=== PATIENT | female | born 1965 | race Caucasian/White ===

== ENCOUNTER → 2021-12-17 | Outpatient (CLI) | payer BC ==
[2021-12-17 11:59] VITALS: BP 160/78; PULSE 87; RESP 18; TEMP 97.9
--- NOTE | 2021-12-17 12:24 | P.GSHP ---
History of Present Illness H&P Date: 12/17/21 Chief Complaint: invasive ductal cancer left breast stage IA Justa is a 56 year old white female seen in consultation for Azul Velázquez regarding a biopsy proven invasive ductal cancer in the left breast. She had a routine screening mammogram performed on 8322. This revealed a lesion in the left breast [place] [address]. Diagnostic left breast mammogram was then performed on 920 822. Biopsy was recommended. Biopsy was performed on 12-07-21. This was for a 1.8 x 1.4 cm lesion in the 4:00 region of the left breast. She has not had any prior breast biopsies or surgery. She has not had any recent trauma or infection in her breast. She did develop ecchymosis following the biopsy and still has some residual. Caffiene: 2 cups/day nicotine: 1 to 1/2 PPD for 45 years chocolate: occasional BCP: < 2 years in her 20's hormones: none Family History: mother: breast cancer 3 maternal aunts: breast cancer maternal aunt: colon cancer father: lung cancer sister: brain cancer Hormonal History: menarche: 12 , breast fed: yes, age at first : 23 menopause: 41; stopped the periods with something they inserted not hormones hormones: none Surgical History: as above Medical History: headaches vertigo Social History: nicotine: 1 to 1/2 PPD alcohol: 2/night drugs: none - Constitutional Constitutional: Reports sweats - EENT Eyes: denies blurred vision, denies pain Ears: deny: decreased hearing, tinnitus Ears, nose, mouth and throat: Reports headache - Breasts Breasts: bilateral: as per HPI - Cardiovascular Cardiovascular: Denies chest pain, Denies shortness of breath - Respiratory Comment: smoker - Gastrointestinal Gastrointestinal: Denies abdominal pain, Denies diarrhea, Denies nausea, Denies vomiting - Genitourinary (Female) Genitourinary: Denies dysuria, Denies hematuria - Menstruation Menstruation: Reports postmenopausal - Musculoskeletal Musculoskeletal: Denies myalgias - Integumentary Integumentary: Denies pruritus, Denies rash - Neurological Neurological: Denies numbness, Denies weakness - Psychiatric Psychiatric: Denies anxiety, Denies depression - Endocrine Endocrine: Denies fatigue, Denies weight change - Hematologic/Lymphatic Comment: none - Allergic/Immunologic Allergic/Immunologic: Reports seasonal allergies Past Medical History Past Medical History: No Reported History History of Any Multi-Drug Resistant Organisms: None Reported Past Surgical History: No Surgical Hx Reported Past Anesthesia/Blood Transfusion Reactions: No Reported Reaction Past Psychological History: No Psychological Hx Reported Smoking Status: Current every day smoker Past Alcohol Use History: Occasional Past Drug Use History: None Reported Medications and Allergies Home Medications Medication Instructions Recorded Confirmed Type Biotin [Biotin Disolve] 1,000 mcg PO DAILY 12/17/21 12/17/21 History Cholecalciferol [Vitamin D3 (25 25 mcg PO DAILY 12/17/21 12/17/21 History Mcg = 1000 Iu)] Loratadine [Claritin] 10 mg PO DAILY PRN 12/17/21 12/17/21 History Meclizine [Antivert] 25 mg PO HS 12/17/21 12/17/21 History Montelukast [Singulair] 10 mg PO HS 12/17/21 12/17/21 History Zinc Gluconate [Zinc] 50 mg PO DAILY 12/17/21 12/17/21 History buPROPion HCL [buPROPion HCL XL] 300 mg PO HS 12/17/21 12/17/21 History Allergies Allergy/AdvReac Type Severity Reaction Status Date / Time bacitracin Allergy Rash/Hives Unverified 12/17/21 11:34 [From Neosporin ([id number])] codeine Allergy Hallucinati Unverified 12/17/21 11:34 ons neomycin Allergy Rash/Hives Unverified 12/17/21 11:34 [From Neosporin ([id number])] polymyxin B Allergy Rash/Hives Unverified 12/17/21 11:34 [From Neosporin ([id number])] Surgical - Exam Vital Signs Temp Pulse Resp BP Pulse Ox 97.9 F 87 18 160/78 99 12/17/21 11:52 12/17/21 11:52 12/17/21 11:52 12/17/21 11:52 12/17/21 11:52 - General no distress - Eyes normal ocular movement - Neck trachea midline - Respiratory normal respiratory effort, clear to auscultation - Cardiovascular Rhythm: regular Heart Sounds: normal: S1, S2 - Abdomen Abdomen: soft, non tender, no guarding, no rigid, no rebound - Integumentary no rash, no abnormal pigmentation - Neurologic no disoriented, no combative - Musculoskeletal normal gait - Psychiatric oriented to time, oriented to person, oriented to place, speech is normal, memory intact Breast Exam: BRA: 38C Inspection: Bilateral grade 2/3 ptosis Palpation: Right breast: Multiple positional exam fibrocystic changes no dominant masses or nodules of concern Right axilla: No adenopathy of concern Left breast: Multiple positional exam ecchymosis at the 4 o'clock position a palpable mass approximately 2 cm in size at the lateral 4 o'clock position it is not fixed Left axilla: No adenopathy of concern Results Mammogram and ultrasound reviewed with Dr. Joni Naidu; lesion noted in the left breast as stated Assessment and Plan Assessment: Impression: Left breast invasive ductal carcinoma approximately 2 cm ER/MN positive HER- 2/leo negative G2 stage IA Nicotine dependence Vertigo/headaches being evaluated Plan: Presentation case at tumor board Probable left breast lumpectomy via mastopexy incision with sentinel node biopsy CC: Azul Velázquez
== END ==
LOC: WWCWWP 11:24
PROVIDERS: ATTEND Surgery
DX: C50.912 Malignant neoplasm of unspecified site of left female breast (principal); Z88.5 Allergy status to narcotic agent; Z91.040 Latex allergy status; Z88.1 Allergy status to other antibiotic agents

== ENCOUNTER → 2022-01-15 | Outpatient (CLI) | payer BC ==
[2022-01-15 14:47] VITALS: BP 119/65; PULSE 95; RESP 17; TEMP 97.8
--- NOTE | 2022-01-15 15:10 | P.PN ---
Subjective Progress Note Date: 01/15/22 Principal diagnosis: stage Ia Left breast cancer Chief Complaint: invasive ductal cancer left breast stage IA Justa is a 56 year old white female seen in consultation for Azul Velázquez regarding a biopsy proven invasive ductal cancer in the left breast. She had a routine screening mammogram performed on 8322. This revealed a lesion in the left breast [place] [address]. Diagnostic left breast mammogram was then performed on 920 822. Biopsy was recommended. Biopsy was performed on 12-07-21. This was for a 1.8 x 1.4 cm lesion in the 4:00 region of the left breast. She has not had any prior breast biopsies or surgery. She has not had any recent trauma or infection in her breast. She did develop ecchymosis following the biopsy and still has some residual. Caffiene: 2 cups/day nicotine: 1 to 1/2 PPD for 45 years chocolate: occasional BCP: < 2 years in her 20's hormones: none Family History: mother: breast cancer 3 maternal aunts: breast cancer maternal aunt: colon cancer father: lung cancer sister: brain cancer Hormonal History: menarche: 12 , breast fed: yes, age at first : 23 menopause: 41; stopped the periods with something they inserted not hormones hormones: none Surgical History: as above Medical History: headaches vertigo Social History: nicotine: 1 to 1/2 PPD alcohol: 2/night drugs: none - Constitutional Constitutional: Reports sweats - EENT Eyes: denies blurred vision, denies pain Ears: deny: decreased hearing, tinnitus Ears, nose, mouth and throat: Reports headache - Breasts Breasts: bilateral: as per HPI - Cardiovascular Cardiovascular: Denies chest pain, Denies shortness of breath - Respiratory Comment: smoker - Gastrointestinal Gastrointestinal: Denies abdominal pain, Denies diarrhea, Denies nausea, Denies vomiting - Genitourinary (Female) Genitourinary: Denies dysuria, Denies hematuria - Menstruation Menstruation: Reports postmenopausal - Musculoskeletal Musculoskeletal: Denies myalgias - Integumentary Integumentary: Denies pruritus, Denies rash - Neurological Neurological: Denies numbness, Denies weakness - Psychiatric Psychiatric: Denies anxiety, Denies depression - Endocrine Endocrine: Denies fatigue, Denies weight change - Hematologic/Lymphatic Comment: none - Allergic/Immunologic Allergic/Immunologic: Reports seasonal allergies Past Medical History Past Medical History: No Reported History History of Any Multi-Drug Resistant Organisms: None Reported Past Surgical History: No Surgical Hx Reported Past Anesthesia/Blood Transfusion Reactions: No Reported Reaction Past Psychological History: No Psychological Hx Reported Smoking Status: Current every day smoker Past Alcohol Use History: Occasional Past Drug Use History: None Reported Medications and Allergies Home Medications Medication Instructions Recorded Confirmed Type Biotin [Biotin Disolve] 1,000 mcg PO DAILY 12/17/21 12/17/21 History Cholecalciferol [Vitamin D3 (25 25 mcg PO DAILY 12/17/21 12/17/21 History Mcg = 1000 Iu)] Loratadine [Claritin] 10 mg PO DAILY PRN 12/17/21 12/17/21 History Meclizine [Antivert] 25 mg PO HS 12/17/21 12/17/21 History Montelukast [Singulair] 10 mg PO HS 12/17/21 12/17/21 History Zinc Gluconate [Zinc] 50 mg PO DAILY 12/17/21 12/17/21 History buPROPion HCL [buPROPion HCL XL] 300 mg PO HS 12/17/21 12/17/21 History Allergies Allergy/AdvReac Type Severity Reaction Status Date / Time bacitracin Allergy Rash/Hives Unverified 12/17/21 11:34 [From Neosporin ([id number])] codeine Allergy Hallucinati Unverified 12/17/21 11:34 ons neomycin Allergy Rash/Hives Unverified 12/17/21 11:34 [From Neosporin ([id number])] polymyxin B Allergy Rash/Hives Unverified 12/17/21 11:34 [From Neosporin ([id number])] Objective - Vital Signs Vital signs: Intake & Output 01/14/22 01/15/22 01/15/22 18:59 06:59 18:59 Weight 68.039 kg - Constitutional General appearance: Present: cooperative - EENT Eyes: Present: EOMI ENT: Present: hearing grossly normal - Neck Neck: Present: normal ROM - Respiratory Respiratory: bilateral: CTA - Cardiovascular Rhythm: regular Heart sounds: normal: S1, S2 - Gastrointestinal General gastrointestinal: Present: soft - Integumentary Integumentary: Present: normal turgor - Musculoskeletal Musculoskeletal: Present: gait normal - Psychiatric Psychiatric: Present: A&O x's 3, appropriate affect, intact judgment & insight - Additional findings Additional findings: Breast Exam: BRA: 38C Inspection: Bilateral grade 2/3 ptosis Palpation: Right breast: Multiple positional exam fibrocystic changes no dominant masses or nodules of concern Right axilla: No adenopathy of concern Left breast: Multiple positional exam ecchymosis at the 4 o'clock position a palpable mass approximately 2 cm in size at the lateral 4 o'clock position it is not fixed Left axilla: No adenopathy of concern Assessment and Plan Assessment: Results Mammogram and ultrasound reviewed with Dr. Joni Naidu; lesion noted in the left breast as stated Assessment and Plan Assessment: Impression: Left breast invasive ductal carcinoma approximately 2 cm ER/IN positive HER- 2/leo negative G2 stage IA Nicotine dependence Vertigo/headaches being evaluated Plan: Presentation case at tumor board/ is was done on [id number], the plan is for surgery lumpectomy with sentinel node biopsy, hormone therapy, radiation. left breast lumpectomy via mastopexy incision; left breast needle loclaization, possible left breast onco-plastic tissue transfer sentinal node injection sentinel node biopsy possible left axillary node disection CC: Azul Velázquez Patient [place] [id number]. Results are pending. She does have results of his mother's genetic testing which was negative. This was done on [id number]. John has been obtained from neurology, we are awaiting clearance from her primary care physician as a stress test has been ordered. We are also waiting for genetic testing.
== END | disposition home or self-care (01) ==
LOC: WWCWWP 14:15
PROVIDERS: ATTEND Surgery
DX: Z53.9 Procedure and treatment not carried out, unspecified reason (principal)

== ENCOUNTER 2022-02-02 09:03 | Day surgery (SDC) | payer BC ==
[2022-01-26 11:58] VITALS: BMI 25.8
[~2022-02-02 09:03] MED LIST: DEXAMETHASONE SOD PHOSPHATE 4 MG/ML 1 ML VIAL IV ONE; HEPARIN SODIUM,PORCINE/PF 5,000 UNIT/0.5 ML SYRINGE SQ PRN; LACTATED RINGERS 1,000 ML IV SCH; ONDANSETRON 4 MG/2 ML VIAL IVP ONE; Pre Op ABX Message 1 EACH MISC MISCELLANE ONE; fentaNYL (PF) 50 MCG/ML 2 ML AMP IV PRN
[2022-02-02] MEDS ORDERED: LIDOCAINE 1% INJ 10MG/ML (30 ML VIAL-PF) SQ ONE (10:45)
--- NOTE | 2022-02-02 11:54 | P.NAPBC ---
NAPBC Queries - NAPBC Queries Was patient's case review presented at [facility] tumor board? If no, comment.: Yes Was patient's pathology reviewed at [facility]? If no, comment.: Yes Was breast conservation surgery offered? If no, comment.: Yes Was sentinel node biopsy offered? If no, comment.: Yes Was diagnosis confirmed by percutaneous core biopsy? If no, comment.: Yes Is patient mastectomy patient?: No Was a preop referral to reconstructive surgeon offered?: No Clinical Stage: stage IA
[2022-02-02] MEDS ORDERED: HYDROmorphone (PF) 1 MG/ML ONE (12:17)
[2022-02-02] MEDS ORDERED: PROPOFOL 10 MG/ML 20 ML VIAL IV ONE (12:17)
[2022-02-02] MEDS ORDERED: SUCCINYLCHOLINE CHLORIDE 200 MG/10 ML VIAL IV ONE (12:17)
[2022-02-02] MEDS ORDERED: MIDAZOLAM 2 MG/2 ML VIAL ONE (12:17)
[2022-02-02] MEDS ORDERED: fentaNYL (PF) 50 MCG/ML 2 ML AMP ONE (12:17)
[2022-02-02] MEDS ORDERED: LIDOCAINE 2% INJ 20 MG/ML (2 ML VIAL) ONE (12:17)
--- NOTE | 2022-02-02 12:55 | NM ---
EXAMINATION TYPE: NM sentinel node injection DATE OF EXAM: 02/02/2022 COMPARISON: NONE INDICATION: Abnormal mammogram. Informed consent was obtained. A timeout was performed. The area around the left nipple was cleansed with alcohol. In a single dose, a total of 5-1 uCi Luther hnetium 99m Tilmanocept was injected. The patient tolerated the procedure very well. IMPRESSIONS: 1. Successful injection for sentinel node evaluation.
[2022-02-02] MEDS ORDERED: LIDOCAINE 1% INJ 10MG/ML (20 ML MDV) SQ ONE (13:22)
[2022-02-02] MEDS ORDERED: LACTATED RINGERS 1,000 ML IV ONE (14:41)
--- NOTE | 2022-02-02 14:48 | P.OP ---
Date of Procedure: 02/02/22 Preoperative Diagnosis: stage 1 invasive ductal left breast cancer Postoperative Diagnosis: same Procedure(s) Performed: left breast needle localization lumpectomy, onco-plastic tissue transfer 55 cm, sentinel node biopsy, axillary node dissection Anesthesia: JANES Surgeon: Azul Santos Estimated Blood Loss (ml): 10 IV fluids (ml): 1,000 Pathology: other (Axillary contents, lumpectomy left breast) Condition: stable Disposition: same day Indications for Procedure: Left breast invasive ductal carcinoma Operative Findings: Enlarged left axillary lymph nodes, left breast invasive ductal carcinoma Description of Procedure: The patient is a 56-year-old white female diagnosed with left breast invasive ductal carcinoma. She was seen first in the radiology department where needle localization of the cancer was performed as well as injection of radiotracer in the periareolar area. She was brought up to the operative suite and brought to the operating room. Following induction of anesthesia the axilla was interrogated using the neoprobe. Radioactivity was noted to be present in the axilla. The left breast and axilla were then prepped and draped in a sterile fashion. The axilla was approached initially. An incision was made and carried down to the radioactive lymph node. The 10 second count of the lymph node was 2059. The tissue was removed. The 10 second background count was 15. However upon palpation of the axilla there were enlarged lymph nodes identified which were considered suspicious. Therefore, axillary dissection was performed. Dissection was performed following the pectoralis minor muscle medially tissue was swept from inferior to the axillary vein and the area of the thoracodorsal and long thoracic nerves were identified and preserved. The tissue was removed. Several lymph nodes appeared to be enlarged and suspicious. The deep tissues were irrigated and after we were assured that hemostasis was attained the deep tissues were closed using Vicryl suture. This was followed by closure of the subcutaneous tissue with Vicryl suture and a 4-0 Monocryl subcuticular suture. The area of the breast was approached. In the preoperative area markings for a mastopexy incision had been placed. The mastopexy incision markings were visualized and the skin was de-epithelialized. The breast parenchyma was entered at the lateral aspect of the incision. The dissection was performed in the subcutaneous tissue to the area of the needle which was localizing the tumor. Dissection was performed around the wire in the surrounding tissue was excised. The specimen was painted for orientation and sent to radiology for confirmation that the area of concern about removed, this was obtained. The posterior dissection was onto the pectoralis major muscle. Following this a superior pedicle 7 x 5 cm was developed and an inferior pedicle 5 x 4 cm was developed. Titanium clips were placed in the the lumpectomy cavity. After we were assured that hemostasis was attained Surgicel in powder form was placed. The pillars were brought together and secured using 3-0 Vicryl suture. Following this the circumareolar incision was closed using 3-0 Vicryl suture. This was followed by closure with a 4-0 Monocryl and then a nylon suture. The patient tolerated the procedure in stable condition. All instrument and sponge counts were correct at the end of the case.
--- NOTE | 2022-02-02 14:49 | P.DS ---
Providers Attending physician: Azul Santos Primary care physician: Diana You [facility] Plan - Discharge Summary Discharge Rx Participant: Yes New Discharge Prescriptions: No Action Loratadine [Claritin] 10 mg PO DAILY PRN PRN Reason: Allergy Symptoms Meclizine [Antivert] 25 mg PO HS Cholecalciferol [Vitamin D3 (25 Mcg = 1000 Iu)] 25 mcg PO DAILY Biotin [Biotin Disolve] 1,000 mcg PO DAILY buPROPion HCL [buPROPion HCL XL] 300 mg PO HS Zinc Gluconate [Zinc] 50 mg PO DAILY Montelukast [Singulair] 10 mg PO HS Discharge Medication List Biotin [Biotin Disolve] 1,000 mcg PO DAILY 12/17/21 [History] Cholecalciferol [Vitamin D3 (25 Mcg = 1000 Iu)] 25 mcg PO DAILY 12/17/21 [History] Loratadine [Claritin] 10 mg PO DAILY PRN 12/17/21 [History] Meclizine [Antivert] 25 mg PO HS 12/17/21 [History] Montelukast [Singulair] 10 mg PO HS 12/17/21 [History] Zinc Gluconate [Zinc] 50 mg PO DAILY 12/17/21 [History] buPROPion HCL [buPROPion HCL XL] 300 mg PO HS 12/17/21 [History] Follow up Appointment(s)/Referral(s): Azul Santos MD [STAFF PHYSICIAN] - 02/11/22 1:40 pm Activity/Diet/Wound Care/Special Instructions: Do not drive until seen by Dr. Chairez May shower after 48 hours Wear bra at all times Discharge Disposition: HOME SELF-CARE
[2022-02-02 15:00] VITALS: TEMP 98.9
[2022-02-02 15:52] VITALS: RESP 16
[2022-02-02 17:06] VITALS: BP 131/67; PULSE 84
--- NOTE | 2022-02-11 11:16 | MM ---
Risk Values: Adrienne 5 year model risk: 0.8%. NCI Lifetime model risk: 5.2%. Pathology Description: Approach: Lateral to Medial Needle Type: 5 cm Kopan The needle localization procedure with wire placement for surgical excision was explained to the patient. Benefits, alternatives, and risks were discussed. An informed consent was then obtained. A timeout was performed. The overlying skin was prepped in usual sterile fashion. Lidocaine was used as anesthetic into the skin and subcutaneous tissue up to the level of area of concern. A 5 cm needle was used. It was placed using a lateral approach under mammographic guidance. Subsequent 90 degrees mammogram show the needle to be in satisfactory position relative to the targeted area. The wire was placed and the needle was withdrawn. The wire was fixed to patient's skin. Images were marked for surgeon. The patient tolerated the procedure well without any immediate complication. The patient was kept in the radiology department for short stay after the procedure and then taken to surgery for surgical excision. Specimen: Biopsy marker and wire are identified in specimen mammogram. Impression: 1. Successful needle localization with wire placement and surgical excision of biopsy marker. Pathology Results: Result: Malignant, Invasive ductal carcinoma. A. LEFT SENTINEL LYMPH NODE, EXCISION: One sentinel lymph node, positive for micrometastatic carcinoma (1 mm focus). CK7 and GABRIEL stains, both performed with appropriate controls on block A1, each positive within focus of micrometastatic carcinoma. B. LEFT AXILLARY LYMPH NODES, EXCISION: Four out of five axillary lymph nodes positive for macrometastatic carcinoma (see cancer protocol). C. DE-EPITHELIALIZED TISSUE, LEFT BREAST, EXCISION: Benign and fibrotic skin, negative for malignancy. D. LEFT BREAST, LUMPECTOMY: Invasive ductal carcinoma, Grade 1, with focal micropapillary features, microcalcification and low to intermediate grade ductal carcinoma in situ (see surgical pathology cancer case summary and comment). All margins negative for in situ and invasive carcinoma. Closest margins to invasive carcinoma: Tumor closely approaches and measures less than 1 mm from lateral margin and posterior margin. Closest margin to DCIS: 1 mm from posterior margin. Overall Assessment: Malignant Management: Surgical Consultation of the left breast. Diagnostic Mammogram of the left breast in 6 months. Electronically signed and approved by: Delmer Gonsalez D.O. Radiologis
== END 2022-02-02 16:58 | disposition home or self-care (01) ==
LOC: OR 09:03
PROVIDERS: ATTEND Surgery
DX: C50.912 Malignant neoplasm of unspecified site of left female breast (principal); R92.0 Mammographic microcalcification found on diagnostic imaging of breast
CPT/HCPCS: 19302; 14001; 38900; 88305; 88342; 88307; 88341; 76098; 38792; C1819; A9520; J2250; J0330; J1100; J2405; J2001 ×3; J3010; J1170; J2704; J1644

== ENCOUNTER → 2022-02-11 | Outpatient (CLI) | payer BC ==
[2022-02-11 13:31] VITALS: BP 132/80; PULSE 77; RESP 16; TEMP 98
--- NOTE | 2022-02-11 13:44 | P.PN ---
Progress Note - Text Progress Note Date: 02/11/22 Justa is a 56 year old white female status post left breast lumpectomy and axillary node sampling on 02-02-22. Her pathology revealed a 21 mm G1 invasive ductal cancer. Margins were (-). 5 of 6 nodes + for cancer; 4 were macromets. Patient complains of some tenderness in the inner aspect of the left arm with raising her arm. Otherwise it is not painful. Physical examination: Lungs: Clear Heart: Regular rate and rhythm Incisions: Clean and dry periareolar as well as axillary Impression: Margins negative and the breast, close in the lateral aspect. 5 of 6 lymph nodes positive for macro metastases. Plan: presentation of case at tumor board Appointment medical oncology appointment radiation oncology Cc: Dr. You
== END ==
LOC: WWCWWP 13:09
PROVIDERS: ATTEND Surgery
DX: C50.912 Malignant neoplasm of unspecified site of left female breast (principal); Z91.040 Latex allergy status; Z88.5 Allergy status to narcotic agent; Z88.1 Allergy status to other antibiotic agents

== ENCOUNTER → 2022-03-05 | Outpatient (CLI) | payer BC ==
--- NOTE | 2022-03-07 09:23 | PE ---
EXAMINATION TYPE: PET CT fusion skull to thigh DATE OF EXAM: 03/05/2022 CLINICAL INDICATION:Female, 57 years old with history of C50.412; TECHNIQUE: Following the intravenous administration of 8.98 mCi of F-18 FDG, whole body images are performed from the skull base to the midthigh. Images are reviewed on the computer in the coronal, a xial, and sagittal planes. Reconstructed rotating images are created on independent workstation and reviewed on the computer. A non-contrast CT is performed in conjunction with the PET scan. Glucose level 112 mg/dL COMPARISON: CT None, PET/CT None, FINDINGS: Mediastinal SUV mean is 1.3. Hepatic parenchyma SUV mean is 2.1. SKULL BASE AND NECK: Focus of abnormal radiotracer activity on the left hypopharynx max SUV 4.3. Located near the left low er aspect of the epiglottis and lateral left pharyngeal wall. CHEST, MEDIASTINUM, AND HILAR REGION: Left axillary fluid collection measuring 4.6 x 4.3 cm Max SUV 1.7. Mild surgical tract inflammation c hanges extend towards the skin without suspicious FDG activity. ABDOMEN AND PELVIS: No suspicious radiotracer activity. OSSEOUS STRUCTURES: No suspicious radiotracer activity. OTHER CT: Mild mucosal thickening of the right maxillary sinus. Atherosclerosis of the arterial vascu lature. Coronary artery atherosclerosis is present. Mild paraseptal emphysema changes are present wit h scattered pulmonary nodules. Similar pulmonary nodules are calcified while others aren't felt to be not calcified. These are innumerable and scattered throughout the lungs these are all below the sens itivity of PET/CT. There is no evidence of abnormal FDG activity within the thorax. Nonobstructing le ft renal calculus measuring 4 mm scattered clonic diverticula present. Bilateral fat-containing ingui nal hernias. IMPRESSION: 1. Postprocedural changes of the left breast with postop seroma in the left axilla. No suspicious ra diotracer activity within the breast or evidence for metastatic disease. 2. Abnormal radiotracer activity within the left hypopharynx Located near the left lower aspect of t he epiglottis and lateral left pharyngeal wall. Visualization recommended to rule out oropharyngeal c ancer. 3. Innumerable pulmonary nodules which are all below the sensitivity of PET/CT.
== END | disposition home or self-care (01) ==
LOC: RADPETMAIN 12:12
PROVIDERS: ATTEND Radiology Radiation Oncology
DX: C50.412 Malignant neoplasm of upper-outer quadrant of left female breast (principal); L76.34 Postprocedural seroma of skin and subcutaneous tissue following other procedure; J39.2 Other diseases of pharynx; R91.8 Other nonspecific abnormal finding of lung field
CPT/HCPCS: 78815; A9552

== ENCOUNTER → 2022-03-12 | Outpatient (CLI) | payer BC ==
[2022-03-12 12:49] VITALS: BP 121/71; PULSE 91; RESP 17; TEMP 97.9
--- NOTE | 2022-03-12 13:04 | P.PN ---
Subjective Progress Note Date: 03/12/22 Justa is a 56 year old white female status post left breast lumpectomy and axillary node sampling on 02-02-22. Her pathology revealed a 21 mm G1 invasive ductal cancer. Margins were (-). 5 of 6 nodes + for cancer; 4 were macromets. Patient complains of some tenderness in the inner aspect of the left arm with raising her arm. Otherwise it is not painful. The tumor was 2.1 centimeters in size, 4 of 5 axillary lymph nodes were positive for macromastia metastatic disease and one lymph node was positive for micrometastatic disease The lesion is ER/IA positive, by mouth positive, HER-2 negative, grade 2. Justa's case was presented at tumor board on [id number]. As per recommendations from tumor Board the following will occur: 1. PET scan to be ordered 2. Appointment with medical oncology and radiation oncology 3. Ki-67 testing is going to be done I have called on and discussed the above with her. Additionally have talked with Dr. Nitesh Sneed and he feels that the patient is high risk as she has greater than 4 axillary lymph nodes positive She will most likely also receive hormone therapy as well as a CDK 4 inhibitor. The patient is aware of the above. She has an appointment with medical and radiation oncology and [id number]. She is going to follow up with me on 1622. I have discussed with Dr. Sneed possible completion axillary dissection, however it was felt that the nodes which may be present may be matted and it would be best if the patient had treatment to shrink any lymph nodes prior to any attempt at further surgical resection. We have also discussed radiation therapy to the axilla and this will be decided in conjunction with medical oncology. PET scan done on 03-07-22 abnormal radiotracer in the hypopharynx innumerable pulmonary nodules below sensetivity of PET/CT Objective - Vital Signs Vital signs: Vital Signs Temp 97.9 F 03/12/22 12:47 Pulse 91 03/12/22 12:47 Resp 17 03/12/22 12:47 BP 121/71 03/12/22 12:47 Pulse Ox 98 03/12/22 12:47 FiO2 Intake & Output 03/11/22 03/12/22 03/12/22 18:59 06:59 18:59 Weight 68.039 kg - Constitutional General appearance: Present: cooperative - EENT Eyes: Present: EOMI ENT: Present: hearing grossly normal - Neck Neck: Present: normal ROM - Respiratory Respiratory: bilateral: CTA - Cardiovascular Rhythm: regular Heart sounds: normal: S1, S2 - Gastrointestinal General gastrointestinal: Present: soft - Integumentary Integumentary: Present: normal turgor - Musculoskeletal Musculoskeletal: Present: gait normal - Psychiatric Psychiatric: Present: A&O x's 3, appropriate affect, intact judgment & insight - Additional findings Additional findings: Breast Exam: BRA: 36C inspection: Incision left breast clean and dry Palpation: Right breast: No dominant masses or nodules of concern Right axilla: No adenopathy of concern Left breast: Postoperative changes healing well no evidence of infection Left axilla: No evidence of infection healing well Assessment and Plan Assessment: Impression: PET scan done on [id number] questionable change in the hypopharynx, in no other pulmonary nodules which are below the sensitivity of the PET/CT Patient following with medical oncology Patient following with radiation oncology Plan: Appointment medical oncology Appointment radiation oncology Follow-up here in 4 months, at this time we're not planning on further immediate surgery Cc: Diana You
== END ==
LOC: WWCWWP 12:26
PROVIDERS: ATTEND Surgery
DX: R92.8 Other abnormal and inconclusive findings on diagnostic imaging of breast (principal); Z88.1 Allergy status to other antibiotic agents; Z88.5 Allergy status to narcotic agent; Z91.040 Latex allergy status

== ENCOUNTER → 2022-07-22 | Outpatient (CLI) | payer BC ==
[2022-07-22 13:30] VITALS: BP 113/73; PULSE 79; RESP 12; TEMP 98.6
--- NOTE | 2022-07-22 14:22 | P.PN ---
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 Her pathology revealed a 21 mm G1 invasive ductal cancer. Margins were (-). 5 of 6 nodes + for cancer; 4 were macromets. Patient complains of some tenderness in the inner aspect of the left arm with raising her arm. Otherwise it is not painful. The tumor was 2.1 centimeters in size, 4 of 5 axillary lymph nodes were positive for macromastia metastatic disease and one lymph node was positive for micrometastatic disease The lesion is ER/N[place] positive, by mouth positive, HER-2 negative, grade 2. Justa's case was presented at tumor board on [id number]. As per recommendations from tumor Board the following will occur: 1. PET scan revealed positive uptake in the left hypopharynx for which she was recommended to undergo concurrent x-ray therapy and chemotherapy 2. Appointment with medical oncology and radiation oncology 3. Ki-67 testing is going to be done (11-20%) I have called on and discussed the above with her. Additionally have talked with Dr. Nitesh Sneed and he feels that the patient is high risk as she has greater than 4 axillary lymph nodes positive She will most likely also receive hormone therapy as well as a CDK 4 inhibitor. The patient is aware of the above. She has an appointment with medical and radiation oncology and [id number]. She is going to follow up with me on 1622. I have discussed with Dr. Sneed possible completion axillary dissection, however it was felt that the nodes which may be present may be matted and it would be best if the patient had treatment to shrink any lymph nodes prior to any attempt at further surgical resection. We have also discussed radiation therapy to the axilla and this will be decided in conjunction with medical oncology. PET scan done on 03-07-22 abnormal radiotracer in the hypopharynx innumerable pulmonary nodules below sensetivity of PET/CT 07-22-22 Note 07-09-22 DR Nitesh Sneed reviewed: She has completed a course of radiation therapy for her head and neck cancer and is receiving chemotherapy for this With her bresat cancer she had 1 positive sentinel node with micrometastatic as well as 4 out of 5 left axillary lymph nodes with macro metastatic disease and one having extranodal extension; 2.1 CM lesion grade 1 completely excised KI67 was 11-20% Currently she is a T2 N2 A which results in pathological staging of stage IB Given the findings of port for positive lymph nodes past/CT was performed to rule out metastatic disease. Increased activity was noted in the supraglottic region and triple endoscopy revealed no evidence of metastatic disease but suspicious lesion in the left area epiglottic fold, biopsy on 2822 revealed moderately differentiated squamous cell cancer She was evaluated by ENT and recommendation for definitive chemoradiation therapy This was initiated on [id number] Her course was complicated by odontophagia PET scan will be recommended in October 2022 Once she has recovered from chemotherapy/radiation therapy, adjuvant endocrine therapy for breast cancer should be initiated The plan is for adjuvant abemaciclib for 2 years in addition to undergo endocrine therapy At this time she is not complaining of any new lumps masses or nodules of concern in her breast. Objective - Vital Signs Vital signs: Vital Signs Temp 98.6 F 07/22/22 13:27 Pulse 79 07/22/22 13:27 Resp 12 07/22/22 13:27 BP 113/73 07/22/22 13:27 Pulse Ox FiO2 Intake & Output 07/21/22 07/22/22 07/22/22 18:59 06:59 18:59 Weight 54.885 kg - Constitutional General appearance: Present: cooperative - EENT Eyes: Present: EOMI ENT: Present: hearing grossly normal - Neck Neck: Present: normal ROM - Respiratory Respiratory: bilateral: CTA - Cardiovascular Rhythm: regular Heart sounds: normal: S1, S2 - Gastrointestinal General gastrointestinal: Present: soft - Integumentary Integumentary: Present: normal turgor - Musculoskeletal Musculoskeletal: Present: gait normal - Psychiatric Psychiatric: Present: A&O x's 3, appropriate affect, intact judgment & insight - Additional findings Additional findings: Breast Exam: BRA: 36C inspection: Incision left breast clean and dry Palpation: Right breast: No dominant masses or nodules of concern Right axilla: No adenopathy of concern Left breast: Multi-positional exam post operative and post radiation changes no dominant masses or nodules of concern Left axila: No adenopathy of concern on today's exam Assessment and Plan Assessment: Impression: Stage III left breast invasive ductal carcinoma on pathologic staging, patient has received surgery and radiation therapy, she has received chemotherapy for squamous cell carcinoma of the throat her Oncotype score on the breast was 9 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 Sneed Plan: No evidence of recurrent left breast cancer/no palpable adenopathy in the left axilla at this time Hormone and immunotherapy as per medical oncology Repeat bilateral mammogram October 2022 with appointment at that time PET as per medical oncology CC: Ross You
== END ==
LOC: WWCWWP 13:14
PROVIDERS: ATTEND Surgery
DX: D05.12 Intraductal carcinoma in situ of left breast (principal); Z85.3 Personal history of malignant neoplasm of breast; Z91.040 Latex allergy status; Z88.5 Allergy status to narcotic agent; Z88.1 Allergy status to other antibiotic agents; Z88.7 Allergy status to serum and vaccine; Z88.8 Allergy status to other drugs, medicaments and biological substances

== ENCOUNTER 2022-07-26 17:55 | Inpatient (IN) | payer BC ==
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
[2022-07-26 20:44] LABS: Anisocytosis Slight; Basophils % (A) 0 %; Eosinophils # (A) 0.1 k/uL (0-0.7); Eosinophils % (A) 1 %; HCT 27.6 % (34.0-46.0); HGB 9.9 gm/dL (11.4-16.0); Lymphocytes # (A) 0.8 k/uL (1.0-4.8); Lymphocytes % (A) 13 %; MCH 32.1 pg (25.0-35.0); MCHC 35.7 g/dL (31.0-37.0); MCV 89.9 fL (80.0-100.0); Mean Platelet Volume 6.9; Monocytes # (A) 0.3 k/uL (0-1.0); Monocytes % (A) 6 %; Neutrophils # (A) 4.5 k/uL (1.3-7.7); Neutrophils % (A) 77 %; Platelet Count 340 k/uL (150-450); Poikilocytosis Slight; RBC 3.08 m/uL (3.80-5.40); RDW 17.1 % (11.5-15.5); WBC 5.8 k/uL (3.8-10.6)
[2022-07-26 21:05] LABS: ALT 19 U/L (4-34); AST 31 U/L (14-36); African American GFR (CKD) >90 (>60 ml/min/1.73 sqM); Albumin 3.3 g/dL (3.5-5.0); Alkaline Phosphatase 111 U/L (38-126); Anion Gap 12 mmol/L; Blood Urea Nitrogen 20 mg/dL (7-17); Calcium 9.8 mg/dL (8.4-10.2); Carbon Dioxide 26 mmol/L (22-30); Chloride 100 mmol/L (98-107); Glucose 119 mg/dL (74-99); Non-African American GFR(CKD) >90 (>60 ml/min/1.73 sqM); Potassium 2.8 mmol/L (3.5-5.1); Sodium 138 mmol/L (137-145); Total Bilirubin 0.7 mg/dL (0.2-1.3); Total Protein 5.9 g/dL (6.3-8.2)
--- NOTE | 2022-07-26 21:32 | XR ---
EXAMINATION TYPE: XR soft tissue neck DATE OF EXAM: 07/26/2022 COMPARISON: None HISTORY: Throat pain TECHNIQUE: 2 view soft tissue neck FINDINGS: There is rounding of the epiglottis. Acute epiglottitis should be considered. Report was called to the emergency room PA by Dr. Gonsalez by telephone at 2128 hours 07/26/2022. Hypopharynx otherwise appears unremarkable. Prevertebral space appears normal. Degenerative disc markie nges and spurring is present C5-6 C6-7. Posterior spinal lamellar line appears intact. IMPRESSION: 1. Correlate for acute epiglottitis.
[2022-07-26] MEDS ORDERED: SODIUM CHLORIDE 0.9% 1,000 ML IV ONE (21:55)
[2022-07-26] MEDS ORDERED: HYDROmorphone 0.5 MG/0.5 ML SYRINGE IVP STA (21:57)
[2022-07-26] MEDS ORDERED: FLUCONAZOLE ORAL SUSP 1,400 MG/35 ML BOTTLE PO ONE (22:30)
[2022-07-26] MEDS ORDERED: NALOXONE 0.4 MG/ML 1 ML VIAL IV PRN (23:09)
[2022-07-26] MEDS ORDERED: HYDROmorphone 0.5 MG/0.5 ML SYRINGE IVP PRN (23:09)
[2022-07-26] MEDS: POTASSIUM CHLORIDE 10 MEQ in WATER FOR INJECTION 1 100ML.BAG IVPB SCH (23:13)
[2022-07-27] MEDS: POTASSIUM CHLORIDE 10 MEQ in WATER FOR INJECTION 1 100ML.BAG IVPB SCH ×11 (00:18→22:21)
--- NOTE | 2022-07-27 02:24 | P.HPIM ---
History of Present Illness H&P Date: 07/27/22 The patient is a 57-year-old female with a PMH of breast cancer status post chemotherapy and radiation, metastasis to the head and neck who presents to the emergency room with complaints of painful swallowing. The patient reports that she is currently undergoing treatment for breast cancer with Dr Sneed. She reports the pain started roughly 1-2 weeks ago and had gradually worsened. She reports a severely diminished appetite due to her inability to eat solid food. She denied experiencing chest discomfort, shortness of breath, fever, chills, cough, nausea, vomiting, diarrhea. In the emergency room, a soft tissue neck x-ray revealed findings consistent with acute epiglottitis. Laboratory evaluation is remarkable for hemoglobin 9.9, potassium 2.8, albumin 3.3, and glucose 119. ED documentation reviewed and case discussed with ED provider. Review of systems: Pertinent positives and negatives as discussed in HPI, a complete review of systems was performed and all other systems are negative. Physical examination: Vital signs reviewed General: non toxic, no distress, appears at stated age, normal weight Derm: no unusual rashes/lesions, warm Head: atraumatic, normocephalic, symmetric Eyes: EOMI, no lid lag, anicteric sclera, pupils equal round reactive to light ENT: Nose and ears atraumatic Neck: No cervical lymphadenopathy, trachea midline, supple Mouth: no lip lesion, mucus membranes moist Cardiovascular: S1S2 reg, no murmur, positive dorsalis pedis pulse bilateral, no edema Lungs: CTA bilateral, no rhonchi, no rales, no accessory muscle use Abdominal: soft, nontender to palpation, no guarding Ext: muscle strength 4 out of 5 in all 4 extremities grossly, no gross muscle atrophy, no contractures, Neuro: CN II-XI grossly intact, no gross focal neuro deficits Psych: Alert, oriented, appropriate affect Assessment: Odynophagia, suspected esophageal candidasis Breast cancer, s/p chemotherapy and radiation Hypokalemia Imaging: Soft tissue neck x-ray revealed findings consistent with acute epiglottitis. Data Review: Laboratory evaluation is remarkable for hemoglobin 9.9, potassium 2.8, albumin 3.3, and glucose 119. Plan: Continue fluconazole 200 mg by mouth daily Continue IV fluids normal saline 75 ml per hour Speech and swallow evaluation Oncology consult DVT prophylaxis: Heparin subq The patient is admitted with an anticipated less than 2 midnight stay for evaluation of odynophagia CODE STATUS: Full Code Discussed with: Patient Anticipated discharge place: Home Past Medical History Past Medical History: Cancer Additional Past Medical History / Comment(s): LEFT BREAST CANCER DIAGNOSED 01/2022. Currently having radiation Tue-Tue - not going Tuesday this week, states Radiation Dr aware she's having procedure with Dr Drew. Vertigo. History of Any Multi-Drug Resistant Organisms: None Reported Past Surgical History: Breast Surgery Additional Past Surgical History / Comment(s): Left breast lumpectomy. Past Anesthesia/Blood Transfusion Reactions: Motion Sickness Additional Past Anesthesia/Blood Transfusion Reaction / Comment(s): Slow to wake up. Mom slow to wake up. Vertigo. Past Psychological History: No Psychological Hx Reported Smoking Status: Former smoker Past Alcohol Use History: Occasional Past Drug Use History: None Reported - Past Family History Mother Family Medical History: Cancer Father Family Medical History: Cancer Medications and Allergies Home Medications Medication Instructions Recorded Confirmed Type Ibuprofen [Motrin Infants] 50 mg PO Q4-6H 07/22/22 07/22/22 History Allergies Allergy/AdvReac Type Severity Reaction Status Date / Time bacitracin Allergy Rash/Hives Verified 07/22/22 13:24 [From Neosporin ([id number])] codeine Allergy Hallucinati Verified 07/22/22 13:24 ons latex Allergy Rash/Hives Verified 07/22/22 13:24 neomycin Allergy Rash/Hives Verified 07/22/22 13:24 [From Neosporin ([id number]-wdy-[id number])] polymyxin B Allergy Rash/Hives Verified 07/22/22 13:24 [From Neosporin (xeb-iic-hurmd)] WASPS Allergy Swelling Uncoded 07/22/22 13:24 Physical Exam Vitals: Vital Signs Temp Pulse Resp BP Pulse Ox 07/27/22 00:39 78 18 130/62 07/26/22 23:31 79 18 125/59 98 07/26/22 22:00 85 16 125/68 100 07/26/22 18:21 98 F 86 20 128/59 98 Intake and Output 07/26/22 07/26/22 07/27/22 14:59 22:59 06:59 Other: Weight 53.07 kg Results CBC & Chem 7: 07/26/22 20:33 07/26/22 20:33 Labs: Abnormal Lab Results - Last 24 Hours (Table) 07/26/22 07/26/22 Range/Units 20:33 20:33 RBC 3.08 L (3.80-5.40) m/uL Hgb 9.9 L (11.4-16.0) gm/dL Hct 27.6 L (34.0-46.0) % RDW 17.1 H (11.5-15.5) % Lymphocytes # 0.8 L (1.0-4.8) k/uL Potassium 2.8 L (3.5-5.1) mmol/L BUN 20 H (7-17) mg/dL Glucose 119 H (74-99) mg/dL Total Protein 5.9 L (6.3-8.2) g/dL Albumin 3.3 L (3.5-5.0) g/dL
[2022-07-27] MEDS: 0.9% NACL WITH KCL 20 MEQ/L 1,000 ML IV SCH ×2 (04:11→13:49)
[2022-07-27] MEDS ORDERED: POTASSIUM CHLORIDE ER 20 MEQ TAB.ER PO STA (05:06)
[2022-07-27] MEDS ORDERED: POTASSIUM BICARBONATE/CIT AC 20 MEQ TABLET.EFF PO ONE (05:36)
[2022-07-27 07:57] LABS: ALT 15 U/L (4-34); AST 22 U/L (14-36); African American GFR (CKD) >90 (>60 ml/min/1.73 sqM); Albumin 2.5 g/dL (3.5-5.0); Albumin/Globulin Ratio 1.1; Alkaline Phosphatase 96 U/L (38-126); Anion Gap 7 mmol/L; Blood Urea Nitrogen 17 mg/dL (7-17); Calcium 8.5 mg/dL (8.4-10.2); Carbon Dioxide 26 mmol/L (22-30); Chloride 105 mmol/L (98-107); Globulin 2.2 g/dL; Glucose 112 mg/dL (74-99); Non-African American GFR(CKD) >90 (>60 ml/min/1.73 sqM); Sodium 138 mmol/L (137-145); Total Bilirubin 0.6 mg/dL (0.2-1.3); Total Protein 4.7 g/dL (6.3-8.2)
[2022-07-27 08:04] LABS: Potassium 2.2 mmol/L (3.5-5.1)
[2022-07-27] MEDS: HEPARIN SODIUM,PORCINE/PF 5,000 UNIT/0.5 ML SYRINGE SQ SCH ×2 (08:35→15:28)
[2022-07-27] MEDS: FLUCONAZOLE ORAL SUSP 1,400 MG/35 ML BOTTLE PO SCH (08:35)
[2022-07-27] MEDS ORDERED: ONDANSETRON 4 MG/2 ML VIAL IVP PRN (11:36)
[2022-07-27] MEDS ORDERED: VANCOMYCIN IV PER PHARMACY 1 EACH MISC MISCELLANE PRN (13:16)
--- NOTE | 2022-07-27 13:26 | P.PN ---
Subjective Progress Note Date: 07/27/22 Hospital course: Patient is a very pleasant 57-year-old female with a past medical history of metastatic breast cancer to the head and neck status post recent completion of chemotherapy and radiation treatment under care of oncologist, Dr. Sneed. She presented to the emergency department secondary to painful swallowing resulting in inability to eat solid foods and liquids. Patient reports this has progressively worsened over the past 2 weeks. She underwent evaluation in the emergency department. Labs completed and reviewed. CBC showing normocytic ane fidelina with hemoglobin of 9.9. BMP revealing hypokalemia with potassium of 2.8 and mild prerenal azotemia with BUN of 20. X-ray soft tissues of neck was completed and radiology report reviewed reporting correlating for acute epiglottitis with rounding of the epiglottis. Patient was started on Diflucan and admitted under our services of consultation oncology. Physical exam: Vital signs reviewed and stable. General: Nontoxic, no distress and appears stated age. Derm: Skin warm and dry, normal coloration for ethnicity. Head: Atraumatic, normocephalic and symmetric. Eyes: EOMs intact, no lid lag, and anicteric sclera Mouth: no lip lesions, mucus membranes moist. No erythema or exudate noted. Cardiovascular: regular rate and rhythm with normal S1S2, no murmur, positive posterior tibial pulses bilaterally, and cap refill < 2 seconds. Lungs: Respirations even, regular, and unlabored on room air. Lungs CTA bilaterally, no rhonchi, no rales, no wheezing, and no accessory muscle usage. Abdominal: soft, nontender to palpation, no guarding, no appreciable organomegaly Ext: ROM intact. No gross muscle atrophy, no edema, no contractures Neuro: Speech clear, face symmetrical and CN II-XII grossly intact with no noted focal neuro deficits Psych: Alert and oriented to person, place, time, and situation. Appropriate and pleasant affect. Assessment and Plan of Care: Odynophagia, suspected esophageal candidiasis however cannot rule out acute epiglottitis Metastatic breast cancer status post chemotherapy and radiation treatments Severe hypokalemia, suspected secondary to malnourishment/dehydration and decreased oral intake resulting from odynophagia. -X-ray soft tissues of neck was completed and radiology reports reviewed with findings concerning for epiglottitis. -Orders placed for Haemophilus influenzae IgG, influenza A and B PCR, strep PCR and strep culture. -Patient started on IV antibiotics with vancomycin and Rocephin. -Consult placed to ENT for evaluation of possible epiglottitis. -Patient currently maintaining airway and clearing own secretions. -Patient to also continue Diflucan 200 mg daily secondary to concerns of oral candidiasis. -Oncology consulted. -Potassium 2.2 this morning. Patient's previous potassium was 2.8 and orders were placed for oral replacement however patient and RN reports pts inability to swallow and therefore did not receive K-Lyte or K-Dur previously ordered. Order placed for potassium sulfate IVPB for a total of 80 mEq. -Order placed for repeat BMP this evening and again tomorrow morning for continu ed close monitoring of hypokalemia. CODE STATUS: Full code DVT prophylaxis: Heparin Discussed with: Patient, patient's , and RN Anticipated discharge date: Clinical course to determine Anticipated discharge place: Home Patient was seen independently by Nurse Pracitioner. This document was prepared using [employer] dictation software. Please allow for errors in dish cloth inspector, while rare they do occur. Minesh Plasencia NP rendered care for this patient independently, reviewed the findings and plan as documented in the note above. I did not physically speak with or examine the patient on this date. Objective - Vital Signs Vital signs: Vital Signs Temp 98 F 07/26/22 18:21 Pulse 78 07/27/22 00:39 Resp 18 07/27/22 00:39 BP 130/62 07/27/22 00:39 Pulse Ox 98 07/26/22 23:31 FiO2 Intake & Output 07/26/22 07/27/22 07/27/22 18:59 06:59 18:59 Weight 53.07 kg - Labs CBC & Chem 7: 07/28/22 07:11 07/29/22 11:00 Labs: Abnormal Lab Results - Last 24 Hours (Table) 07/26/22 07/26/22 07/27/22 Range/Units 20:33 20:33 07:25 RBC 3.08 L (3.80-5.40) m/uL Hgb 9.9 L (11.4-16.0) gm/dL Hct 27.6 L (34.0-46.0) % RDW 17.1 H (11.5-15.5) % Lymphocytes # 0.8 L (1.0-4.8) k/uL Potassium 2.8 L 2.2 L* (3.5-5.1) mmol/L BUN 20 H (7-17) mg/dL Glucose 119 H 112 H (74-99) mg/dL Total Protein 5.9 L 4.7 L (6.3-8.2) g/dL Albumin 3.3 L 2.5 L (3.5-5.0) g/dL
[2022-07-27] MEDS ORDERED: VANCOMYCIN 1,000 MG in SODIUM CHLORIDE 0.9% 250 ML IVPB ONE (13:30)
--- NOTE | 2022-07-27 14:32 | P.CONS ---
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 She is a patient of Dr. Dorothy Sneed. Core needle biopsy performed on 12/02/2021 revealed grade 1 invasive ductal carcinoma. Receptor status was noted to be ER positive, VA positive, and HER2 low. [facility] germline testing noted no germline mutations. She proceeded to lumpectomy with sentinel lymph node biopsy performed on 02/02/2022. She was noted to have grade 1 invasive ductal carcinoma measuring 2.1 cm in largest dimension. Surgical margins were noted to be negative including margins for DCIS. PET Scan 05/27 revealed positive uptake in left hypopharynx. Biopsy was done by Dr Drew of aryepiglotic fold (Left) revealing squamous cell carcinoma, P16 negative. She was evaluated by Dr Pierre who advised concurrent XRT/Chemotherapy. She initiated radiation therapy with weekly cisplatin on 05/25/2022 and completed cycle 6 of weekly cisplatin on 06/29/2022. Her course has been complicated by significant odyn ophagia with inability to swallow solids and is currently only tolerating liquids. She has lost approximately 30 pounds since initiation of treatment. PET scan will be needed in approximately 3 months from the completion of radiation therapy. Once she has recovered from chemotherapy/radiation therapy, adjuvant endocrine therapy for her breast cancer should be initiated. Patient presented to the ER for worsening dysphagia and odynophagia over the last 1-2 weeks. Patient also reports persisting fatigue as well as mild nausea and vomiting and diarrhea. Upon presentation to the ER x-ray of soft tissue neck revealed correlation for acute epiglottitis. Patient has been started on fluconazole, vancomycin and rocephin. ENT consulted. Potassium was found to be 2.2, patient was given potassium supplementation. Hemoglobin 9.9, WBC 5.8, platelets 340,000. Patient is afebrile. Denies shortness of breath, difficulty breathing, chest pain, and dizziness. Review of Systems 10 point ROS is negative except as stated in the HPI Past Medical History Past Medical History: Cancer Additional Past Medical History / Comment(s): LEFT BREAST CANCER DIAGNOSED 01/2022. Currently having radiation Mon-Fri - not going Tuesday this week, states Radiation Dr aware she's having procedure with Dr Drew. Vertigo. History of Any Multi-Drug Resistant Organisms: None Reported Past Surgical History: Breast Surgery Additional Past Surgical History / Comment(s): Left breast lumpectomy. Past Anesthesia/Blood Transfusion Reactions: Motion Sickness Additional Past Anesthesia/Blood Transfusion Reaction / Comm: Slow to wake up. Mom slow to wake up. Vertigo. Past Psychological History: No Psychological Hx Reported Smoking Status: Former smoker Past Alcohol Use History: Occasional Past Drug Use History: None Reported - Past Family History Mother Family Medical History: Cancer Father Family Medical History: Cancer Medications and Allergies Home Medications Medication Instructions Recorded Confirmed Type HYDROcodone/APAP [[place] Elixir 15 ml PO Q8HR PRN 07/27/22 07/27/22 History 7.5-325Mg/15Ml] Ibuprofen Oral Susp [Motrin Oral 800 mg PO Q6H PRN 07/27/22 07/27/22 History Susp] Allergies Allergy/AdvReac Type Severity Reaction Status Date / Time bacitracin Allergy Rash/Hives Verified 07/27/22 07:42 [From Neosporin ([id number]-ospwe)] latex Allergy Rash/Hives Verified 07/27/22 07:42 neomycin Allergy Rash/Hives Verified 07/27/22 07:42 [From Neosporin (pdc-nta-zviin)] polymyxin B Allergy Rash/Hives Verified 07/27/22 07:42 [From Neosporin (qio-ibm-emdby)] Sulfa (Sulfonamide Allergy Rash/Hives Verified 07/27/22 07:42 Antibiotics) codeine AdvReac Hallucinati Verified 07/27/22 07:42 ons WASPS Allergy Swelling Uncoded 07/27/22 07:42 Physical Exam Vitals: Vital Signs Temp Pulse Resp BP BP Pulse Ox 07/27/22 08:30 99.0 F 18 135/49 99 07/27/22 00:39 78 18 130/62 07/26/22 23:31 79 18 125/59 98 07/26/22 22:00 85 16 125/68 100 07/26/22 18:21 98 F 86 20 128/59 98 Intake and Output 07/26/22 07/27/22 07/27/22 22:59 06:59 14:59 Other: Weight 53.07 kg - Constitutional General appearance: average body habitus, no acute distress - EENT white coating noted to base of tongue Eyes: anicteric sclerae, EOMI ENT: hearing grossly normal - Respiratory Respiratory: bilateral: wheezing - Cardiovascular Rhythm: regular Heart sounds: normal: S1, S2 Abnormal Heart Sounds: no systolic murmur, no diastolic murmur, no rub, no S3 Gallop, no S4 Gallop, no click, no other - Gastrointestinal General gastrointestinal: no distended, soft, tenderness Localized gastrointestinal: tender: epigastric periumbilical - Integumentary Integumentary: no cyanotic, no rash - Neurologic grossly intact - Musculoskeletal Musculoskeletal: generalized weakness - Psychiatric Psychiatric: A&O x's 3, appropriate affect, intact judgment & insight Results CBC & Chem 7: 07/26/22 20:33 07/27/22 07:25 Labs: Abnormal Lab Results - Last 24 Hours (Table) 07/26/22 07/26/22 07/27/22 Range/Units 20:33 20:33 07:25 RBC 3.08 L (3.80-5.40) m/uL Hgb 9.9 L (11.4-16.0) gm/dL Hct 27.6 L (34.0-46.0) % RDW 17.1 H (11.5-15.5) % Lymphocytes # 0.8 L (1.0-4.8) k/uL Potassium 2.8 L 2.2 L* (3.5-5.1) mmol/L BUN 20 H (7-17) mg/dL Glucose 119 H 112 H (74-99) mg/dL Total Protein 5.9 L 4.7 L (6.3-8.2) g/dL Albumin 3.3 L 2.5 L (3.5-5.0) g/dL Comments: soft tissue neck x-ray reviewed Assessment and Plan (1) Squamous cell carcinoma of head and neck Current Visit: Yes Status: Acute Priority: High Code(s): C76.0 - MALIGNANT NEOPLASM OF HEAD, FACE AND NECK SNOMED Code(s): 080085651 (2) Breast cancer Current Visit: Yes Status: Acute Priority: Medium Code(s): C50.919 - MALIGNANT NEOPLASM OF UNSP SITE OF UNSPECIFIED FEMALE BREAST SNOMED Code(s): 925443153 (3) Hypokalemia Current Visit: Yes Status: Acute Priority: High Code(s): E87.6 - HYPOKALEMIA SNOMED Code(s): 51026729 (4) Acute epiglottitis without airway obstruction Current Visit: Yes Status: Acute Priority: High Code(s): J05.10 - ACUTE EPIGLOTTITIS WITHOUT OBSTRUCTION SNOMED Code(s): 11596670 Plan: Breast cancer/Squamous cell carcinoma head and neck: -S/p 6 cycles completion of radiation therapy with weekly cisplatin, completing treatment on 06/29/2022. -PET scan will be repeated in approximately 3 months from the completion of radiation therapy. -Once she has recovered from chemotherapy/radiation therapy, adjuvant endocrine therapy for her breast cancer will be recommended -Will plan for f/u in clinic upon discharge Epiglottitis: -X-ray soft tissue neck revealed correlation for acute epiglottitis. No PATTY/SOB, oxygen saturation 99% on room air. -Patient has been started on fluconazole, vancomycin and rocephin. -ENT consulted. Defer management to ENT/IM Hypokalemia: -Potassium 2.2 today. Potassium supplementation ordered -Defer management to IM team attests: I have performed H&P and developed impression and plan of care for patient, discussed with dictator. I agree with dictated note, documented as a scribe
[2022-07-27] MEDS: VANCOMYCIN 750 MG in SODIUM CHLORIDE 0.9% 250 ML IVPB SCH (17:15)
[2022-07-27] MEDS: LIDOCAINE VISCOUS PO PRN ×4 (18:52)
[2022-07-27] MEDS: SIMETH PO PRN ×4 (18:52)
[2022-07-27] MEDS: MAG HYDROX PO PRN ×4 (18:52)
[2022-07-27] MEDS: AL HYDROX PO PRN ×4 (18:52)
[2022-07-27] MEDS: [UNRECOGNIZED DRUG - OTHER] PO PRN ×4 (18:52)
[2022-07-27 21:43] LABS: African American GFR (CKD) >90 (>60 ml/min/1.73 sqM); Anion Gap 9 mmol/L; Blood Urea Nitrogen 14 mg/dL (7-17); Calcium 8.3 mg/dL (8.4-10.2); Carbon Dioxide 22 mmol/L (22-30); Chloride 104 mmol/L (98-107); Glucose 98 mg/dL (74-99); Non-African American GFR(CKD) >90 (>60 ml/min/1.73 sqM); Sodium 135 mmol/L (137-145)
[2022-07-27 22:17] LABS: Potassium 2.7 mmol/L (3.5-5.1)
[2022-07-28] MEDS: HEPARIN SODIUM,PORCINE/PF 5,000 UNIT/0.5 ML SYRINGE SQ SCH ×3 (00:02→16:01)
[2022-07-28] MEDS: VANCOMYCIN 750 MG in SODIUM CHLORIDE 0.9% 250 ML IVPB SCH ×3 (00:02→19:58)
[2022-07-28] MEDS: 0.9% NACL WITH KCL 20 MEQ/L 1,000 ML IV SCH (06:42)
[2022-07-28] MEDS: LIDOCAINE VISCOUS PO PRN ×12 (06:45→22:04)
[2022-07-28] MEDS: MAG HYDROX PO PRN ×12 (06:45→22:04)
[2022-07-28] MEDS: AL HYDROX PO PRN ×12 (06:45→22:04)
[2022-07-28] MEDS: SIMETH PO PRN ×12 (06:45→22:04)
[2022-07-28] MEDS: [UNRECOGNIZED DRUG - OTHER] PO PRN ×12 (06:45→22:04)
[2022-07-28 08:40] LABS: African American GFR (CKD) >90 (>60 ml/min/1.73 sqM); Anion Gap 14 mmol/L; Blood Urea Nitrogen 14 mg/dL (7-17); Calcium 8.5 mg/dL (8.4-10.2); Carbon Dioxide 18 mmol/L (22-30); Chloride 105 mmol/L (98-107); Glucose 141 mg/dL (74-99); Magnesium 1.1 mg/dL (1.6-2.3); Non-African American GFR(CKD) >90 (>60 ml/min/1.73 sqM); Potassium 3.4 mmol/L (3.5-5.1); Sodium 137 mmol/L (137-145)
[2022-07-28 08:46] LABS: Anisocytosis Slight; HCT 25.7 % (34.0-46.0); HGB 8.7 gm/dL (11.4-16.0); MCH 31.9 pg (25.0-35.0); MCHC 33.6 g/dL (31.0-37.0); MCV 94.8 fL (80.0-100.0); Macrocytosis Slight; Mean Platelet Volume 7.9; Platelet Count 321 k/uL (150-450); Poikilocytosis Slight; RBC 2.71 m/uL (3.80-5.40); RDW 18.2 % (11.5-15.5); WBC 4.5 k/uL (3.8-10.6)
[2022-07-28] MEDS: FLUCONAZOLE ORAL SUSP 1,400 MG/35 ML BOTTLE PO SCH (10:26)
[2022-07-28 11:53] LABS: Vancomycin,Random 18.8 ug/mL
--- NOTE | 2022-07-28 13:57 | P.PN ---
Subjective Progress Note Date: 07/28/22 Principal diagnosis: hx breast cancer and head/neck sqaumous cell carcinoma At todays visit patient is resting comfortably in bed. She reports improved today. She reports kools solution is helping with odynophagia an swallowing. Denies PATTY/SOB. No other reported complaints at this time Objective - Vital Signs Vital signs: Vital Signs Temp 98.3 F 07/28/22 08:05 Pulse 69 07/28/22 08:05 Resp 16 07/28/22 08:05 BP 135/63 07/28/22 08:05 Pulse Ox 99 07/28/22 08:05 FiO2 Intake & Output 07/27/22 07/28/22 07/28/22 18:59 06:59 18:59 Intake Total 450 Balance 450 Weight 53.07 kg Intake: Oral 450 Other: Voiding Method Toilet Toilet # Voids 1 1 - Constitutional General appearance: Present: average body habitus, no acute distress - EENT EENT Comment(s): mild white coating to posterior hard palate Eyes: Present: anicteric sclerae, EOMI ENT: Present: hearing grossly normal - Respiratory Details: breathing is even and unlabored - Cardiovascular Details: skin warm and dry - Integumentary Integumentary: Absent: cyanotic, rash - Neurologic Neurologic Comment(s): grossly intact - Musculoskeletal Musculoskeletal: Present: strength equal bilaterally - Psychiatric Psychiatric: Present: A&O x's 3, appropriate affect, intact judgment & insight - Labs CBC & Chem 7: 07/28/22 07:11 07/28/22 07:55 Labs: Abnormal Lab Results - Last 24 Hours (Table) 07/27/22 07/28/22 07/28/22 Range/Units 20:49 02:09 07:11 RBC 2.71 L (3.80-5.40) m/uL Hgb 8.7 L (11.4-16.0) gm/dL Hct 25.7 L (34.0-46.0) % RDW 18.2 H (11.5-15.5) % Sodium 135 L (137-145) mmol/L Potassium 2.7 L* 3.0 L (3.5-5.1) mmol/L Carbon Dioxide (22-30) mmol/L Creatinine 0.51 L (0.52-1.04) mg/dL Glucose (74-99) mg/dL Calcium 8.3 L (8.4-10.2) mg/dL Magnesium (1.6-2.3) mg/dL 07/28/22 Range/Units 07:55 RBC (3.80-5.40) m/uL Hgb (11.4-16.0) gm/dL Hct (34.0-46.0) % RDW (11.5-15.5) % Sodium (137-145) mmol/L Potassium 3.4 L (3.5-5.1) mmol/L Carbon Dioxide 18 L (22-30) mmol/L Creatinine (0.52-1.04) mg/dL Glucose 141 H (74-99) mg/dL Calcium (8.4-10.2) mg/dL Magnesium 1.1 L (1.6-2.3) mg/dL Assessment and Plan (1) Squamous cell carcinoma of head and neck Current Visit: Yes Status: Acute Priority: High Code(s): C76.0 - MALIGNANT NEOPLASM OF HEAD, FACE AND NECK SNOMED Code(s): 576338170 (2) Breast cancer Current Visit: Yes Status: Acute Priority: Medium Code(s): C50.919 - MALIGNANT NEOPLASM OF UNSP SITE OF UNSPECIFIED FEMALE BREAST SNOMED Code(s): 743901386 (3) Hypokalemia Current Visit: Yes Status: Acute Priority: High Code(s): E87.6 - HYPOKALEMIA SNOMED Code(s): 64052203 (4) Acute epiglottitis without airway obstruction Current Visit: Yes Status: Acute Priority: High Code(s): J05.10 - ACUTE EP IGLOTTITIS WITHOUT OBSTRUCTION SNOMED Code(s): 40571828 Plan: Breast cancer/Squamous cell carcinoma head and neck: -S/p 6 cycles completion of radiation therapy with weekly cisplatin, completing treatment on 06/29/2022. -PET scan will be repeated in approximately 3 months from the completion of radiation therapy. -Once she has recovered from chemotherapy/radiation therapy, adjuvant endocrine therapy for her breast cancer will be recommended -Will plan for f/u in clinic upon discharge Epiglottitis: -X-ray soft tissue neck revealed correlation for acute epiglottitis. No PATTY/SOB, oxygen saturation 99% on room air. -Patient has been started on fluconazole, vancomycin and rocephin. -Continue KOOLS prn for odynophagia -ENT consulted. Defer management to ENT/IM Hypokalemia: -Potassium improved, 3.4 today. Potassium supplementation ordered -Defer management to IM team Dr noriegaests: I have performed H&P and developed impression and plan of care for patient, discussed with dictator. I agree with dictated note, documented as a scribe
--- NOTE | 2022-07-28 15:03 | P.PN ---
Subjective Progress Note Date: 07/28/22 Hospital course: Patient is a very pleasant 57-year-old female with a past medical history of metastatic breast cancer to the head and neck status post recent completion of chemotherapy and radiation treatment under care of oncologist, Dr. Sneed. She presented to the emergency department secondary to painful swallowing resulting in inability to eat solid foods and liquids. Patient reports this has progressively worsened over the past 2 weeks. She underwent evaluation in the emergency department. Labs completed and reviewed. CBC showing normocytic ane fidelina with hemoglobin of 9.9. BMP revealing hypokalemia with potassium of 2.8 and mild prerenal azotemia with BUN of 20. X-ray soft tissues of neck was completed and radiology report reviewed reporting correlating for acute epiglottitis with rounding of the epiglottis. Patient was started on Diflucan and admitted under our services of consultation oncology. Physical exam: Patient seen and fully evaluated at the bedside this morning. She continues to have pain with swallowing but denies any other complaints at this time. Patient clearing oral secretions and maintaining airway without any noted difficulties. SpO2 99% on room air. Vital signs reviewed and stable. General: Nontoxic, no distress and appears stated age. Derm: Skin warm and dry, normal coloration for ethnicity. Head: Atraumatic, normocephalic and symmetric. Eyes: EOMs intact, no lid lag, and anicteric sclera Mouth: no lip lesions, mucus membranes moist. No erythema or exudate noted. Patient does have white plaque to the back of the tongue Cardiovascular: regular rate and rhythm with normal S1S2, no murmur, positive posterior tibial pulses bilaterally, and cap refill < 2 seconds. Lungs: Respirations even, regular, and unlabored on room air. Lungs CTA bilaterally, no rhonchi, no rales, no wheezing, and no accessory muscle usage. Abdominal: soft, nontender to palpation, no guarding, no appreciable organomegaly Ext: ROM intact. No gross muscle atrophy, no edema, no contractures Neuro: Speech clear, face symmetrical and CN II-XII grossly intact with no noted focal neuro deficits Psych: Alert and oriented to person, place, time, and situation. Appropriate and pleasant affect. Assessment and Plan of Care: Odynophagia, suspected esophageal candidiasis however cannot rule out acute epiglottitis Metastatic breast cancer status post chemotherapy and radiation treatments Severe hypokalemia, suspected secondary to malnourishment/dehydration and decreased oral intake resulting from odynophagia. Hypomagnesemia -X-ray soft tissues of neck was completed 07/26/22 and radiologist reporting concerns for epiglottitis. -Influenza A, influenza B, and strep PCR were all negative. Haemophilus influenzae IgG and strep culture was obtained and currently pending results. -Pending further results and recommendations from ENT, patient to continue IV antibiotics with vancomycin and Rocephin until acute epiglottitis can be ruled out. -Consult placed to ENT for evaluation of possible epiglottitis and awaiting recommendations. -Patient continues to maintain airway and clearing own secretions without any noted difficulties. SpO2 99% on room air this morning. -Patient to also continue Diflucan 200 mg daily secondary to concerns of oral candidiasis. -Oncology following and reviewed documentation in chart. -Potassium improving from previous 2.2 and is up to 3.[address] for an additional 40 mEq of potassium chloride IVPB. -Magnesium assessment this morning and resulting also significantly low at 1.1. Order placed for magnesium sulfate 4 g IVPB. -Order placed for repeat BMP and magnesium levels tomorrow morning to monitor for resolution of hypokalemia and hypomagnesemia. CODE STATUS: Full code DVT prophylaxis: Heparin Discussed with: Patient, and RN Anticipated discharge date: Clinical course to determine Anticipated discharge place: Home Patient was seen independently by Nurse Pracitioner. This document was prepared using [employer] dictation software. Please allow for errors in bottle packer, while rare they do occur. Minesh Plasencia NP rendered care for this patient independently, reviewed the findings and plan as documented in the note above. I did not physically speak with or examine the patient on this date. Objective - Vital Signs Vital signs: Vital Signs Temp 98 F 07/28/22 05:13 Pulse 80 07/28/22 05:13 Resp 20 07/28/22 05:13 BP 149/74 07/28/22 05:13 Pulse Ox 97 07/28/22 05:13 FiO2 Intake & Output 07/27/22 07/28/22 07/28/22 18:59 06:59 18:59 Other: Voiding Method Toilet # Voids 1 1 - Labs CBC & Chem 7: 07/28/22 07:11 07/29/22 11:00 Labs: Abnormal Lab Results - Last 24 Hours (Table) 07/27/22 07/27/22 07/28/22 Range/Units 07:25 20:49 02:09 Sodium 135 L (137-145) mmol/L Potassium 2.2 L* 2.7 L* 3.0 L (3.5-5.1) mmol/L Creatinine 0.51 L (0.52-1.04) mg/dL Glucose 112 H (74-99) mg/dL Calcium 8.3 L (8.4-10.2) mg/dL Total Protein 4.7 L (6.3-8.2) g/dL Albumin 2.5 L (3.5-5.0) g/dL
--- NOTE | 2022-07-28 15:33 | CDI ---
Documentation Clarification Form Date: 07/28/2022 3:07:29 PM From: Charity Damon RN, CCDS Admit Date: 07/27/2022 1:47:00 PM Patient Name: Justa Abrams Visit Number: [id number] Discharge Date: ATTENTION: The Clinical Documentation Specialists (CDI) and [facility] Coding Staff appreciate your assistance in clarifying documentation. Please respond to the clarification below the line at the bottom and electronically sign. The CDI & [facility] Coding staff will review the response and follow-up if needed. Please note: Queries are made part of the Legal Health Record. If you have any questions, please contact the author of this message via ITS. Dr. Jorgito Lakhani The Registered Dietitian assessment on 07/28/22 indicates this patient meets criteria for severe, acute malnutrition. Based on this information and the findings below, is there an additional diagnosis that is clinically appropriate for this patient? 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 She reposts persisting fatigue, nausea, vomiting and diarrhea. X-ray of neck correlate for acute epiglottitis. 07/27 VS: RD Consult Assessment: Current BMI: 20.0 5 ft. 4 in Insufficient energy intake: Poor appetite over last 1-3 months. Difficulty chewing/swallowing Weight Loss: Involuntary weight loss of 22% of UBW in 6 weeks Loss of subcutaneous fat: Yes Treatment: Dietary Consult: Yes, Severe malnutrition acute Texture-modified diet Diflucan 200 MG PO Daily 07/27-07/28 Kools solution for mouth pain/burning PRN Monitor PO intake tolerance to diet advancement. Vancomycin 750 MG IV Q 8 HRS (PTD) 07/28 .9 NS 1,000 IV Bolus 07/26 Is there an additional diagnosis that is clinically appropriate for this patient? [ ] Mild Protein-Calorie Malnutrition [ ] Moderate Protein-Calorie Malnutrition [ x ] Severe Protein-Calorie Malnutrition [ ] No additional diagnosis/Not clinically significant [ ] Other condition, please specify [ ] Unable to Determine (Template Last Revised: May 2020) MTDD
[2022-07-28] MEDS: MAGNESIUM SULFATE-D5W PMX 1 GM in DEXTROSE/WATER 1 100ML.BAG IVPB SCH ×4 (16:00→22:03)
[2022-07-28] MEDS: POTASSIUM CHLORIDE 10 MEQ in WATER FOR INJECTION 1 100ML.BAG IVPB SCH ×4 (16:00→22:03)
[2022-07-29] MEDS: 0.9% NACL WITH KCL 20 MEQ/L 1,000 ML IV SCH ×2 (00:24→16:28)
[2022-07-29] MEDS: HEPARIN SODIUM,PORCINE/PF 5,000 UNIT/0.5 ML SYRINGE SQ SCH ×3 (00:24→16:14)
--- NOTE | 2022-07-29 01:29 | CONS ---
CONSULTATION REASON FOR CONSULTATION: Possible acute epiglottitis. HISTORY OF PRESENT ILLNESS: This patient is a pleasant 57-year-old female who was seen in the emergency room department at [facility]. She was subsequently admitted with a diagnosis of dehydration, odynophagia, and hypokalemia. The patient was complaining of having difficulty swallowing because of severe pain. She has history of breast cancer and also has history of apparent laryngeal cancer. The patient underwent chemotherapy for her breast cancer. She underwent chemotherapy and radiation to her neck for the laryngeal carcinoma. Prior to the diagnosis of her laryngeal carcinoma, the patient states that she was quite hoarse. She states her voice has improved significantly. Her radiation was finished at the beginning of July. Since her radiation treatment, she has had a sore throat. The patient has difficulty swallowing, especially solid foods and has therefore lost quite a bit of weight. She is able to drink liquids without too much difficulty and also complains of having a dry mouth and a perversion(dysgeusia) of her taste since the radiation treatment. At the time that she was seen in emergency room, a CT scan of the neck was performed and there was a question of rounding of her epiglottis. There was no evidence of any airway obstruction, however, the radiologist felt that acute epiglottitis should be considered in the diagnosis. She was afebrile and had a normal wbc. The patient was subsequently admitted to [facility] and was placed on an antibiotic regimen of Diflucan, vancomycin, and Rocephin. It was felt that the patient also had a possible oral thrush. In speaking with the patient today, I asked her whether or not she felt the throat pain had changed and she felt it had not. The patient has been afebrile since her admission. The patient was a previous smoker, but states that she quit in approximately 2019. She states she has not used any tobacco products since then. It is to be noted the patient is not in any acute respiratory distress. PAST MEDICAL HISTORY: Reveals she has allergies to bacitracin, latex, polymyxin B, and wasps. HOME MEDICATIONS: Ibuprofen. REVIEW OF SYSTEMS: Essentially noncontributory. PHYSICAL EXAMINATION: GENERAL: The patient is a pleasant 57-year-old female who was alert and cooperative. It is to be noted that Dr. Drew is this patient's regular ENT physician. HEENT: The patient is normocephalic. Tympanic membranes normal. Middle ear space is free of any fluid or infection. Pupils are equal, round, and reactive to light and accommodation. Extraocular movements are within normal limits. Intranasal examination reveals moderate septal deviation with compensatory hypertrophy inferior turbinates bilaterally. Limited examination of the oropharynx does not reveal evidence of any significant erythema, edema, or thrush in the posterior pharynx. However, this patient would better be evaluated using a scope or using a nasal pharyngoscope to evaluate her better for the epiglottitis. Remainder of the head exam is unremarkable. NECK: Palpation of the neck reveals no significant tenderness, lymphadenopathy, or masses. The skin of the neck has the usual erythematous(sunburned) appearance which is common following radiation treatment. Remainder of the head/ neck exam is unremarkable. NEUROLOGIC: Cranial nerves 2 through 12. CHEST: Both lung pena are clear to percussion and auscultation. HEART: Patient in regular sinus rhythm. S1 and S2 are present without evidence any murmurs, S3s or S4s. Peripheral pulses are bilaterally symmetrical. ABDOMEN: There is no evidence any masses, megaly, or tenderness. The abdomen is soft. SKIN: Unremarkable. PELVIC AND RECTAL: Done on a regular basis at her family physician's office. The remainder of physical exam is essentially unremarkable. IMPRESSION: Odynophagia, status post radiation for CA of the larynx and dysgeusia. PLAN: I looked at the patient's x-rays and although there is some rounding of the epiglottis, I am not impressed that this would represent acute epiglottitis. Certainly with the patient being afebrile, this would speak against acute epiglottitis. Acute epiglottitis, as you know, although rare in adults, it does occur. Her white cell count is well within normal limits also. She is not having acute airway distress or difficulty handling her secretions. I personally feel that the difficulty swallowing, throat pain, and perversion in the taste of foods that she eats is secondary to the neck irradiation that she has had recently. This is quite common. In some cases, radiation treatment has to be stopped mid treatment because of these particular symptoms. Difficulty swallowing certainly interferes with the patient maintaining good nutrition which is extremely important for fighting any type of malignancy. Because of the patient being afebrile and normal white count, etc., I do not feel that she has acute epiglottitis. If she has any degree of thrush, certainly the Diflucan should cover that infection. I would have expected if she did have acute epiglottitis that she would have some degree of relief of the throat pain withe antibiotics. However, since the throat pain started during her radiation treatment, I am fairly confident that the radiation side effects is a source of her difficulty swallowing, throat pain, etc. The patient states that she will be following up with her oncologist, radiation oncologist, and Dr. Drew once she leaves the hospital. I have advised the nursing staff that she can have a diet as tolerated. Unfortunately, because of the effect of the radiation on taste buds, this is probably not going to happen for awhile. In addition to this, it is quite common that the radiation to the neck will cause a low-grade esophagitis which will resolve over time. I have nothing further to contribute to the patient's treatment and therefore I would be signing off on this patient. If I could be of any further assistance, please feel free to call my office. I want to take this opportunity to thank you for allowing me to assist in the care of your patient. MMODL / IJN: [id number] / IGNACIO
[2022-07-29] MEDS: VANCOMYCIN 750 MG in SODIUM CHLORIDE 0.9% 250 ML IVPB SCH (05:52)
[2022-07-29] MEDS: LIDOCAINE VISCOUS PO PRN ×4 (05:53)
[2022-07-29] MEDS: MAG HYDROX PO PRN ×4 (05:53)
[2022-07-29] MEDS: SIMETH PO PRN ×4 (05:53)
[2022-07-29] MEDS: [UNRECOGNIZED DRUG - OTHER] PO PRN ×4 (05:53)
[2022-07-29] MEDS: AL HYDROX PO PRN ×4 (05:53)
[2022-07-29] MEDS: FLUCONAZOLE ORAL SUSP 1,400 MG/35 ML BOTTLE PO SCH (09:28)
[2022-07-29 10:29] VITALS: BP 113/66; PULSE 62; RESP 18; TEMP 98
[2022-07-29] MEDS ORDERED: VANCOMYCIN TROUGH DUE 1 EACH MISC MISCELLANE ONE (11:00)
[2022-07-29 11:55] LABS: ALT 14 U/L (4-34); AST 22 U/L (14-36); African American GFR (CKD) >90 (>60 ml/min/1.73 sqM); Albumin 2.4 g/dL (3.5-5.0); Alkaline Phosphatase 81 U/L (38-126); Anion Gap 6 mmol/L; Blood Urea Nitrogen 13 mg/dL (7-17); Calcium 7.9 mg/dL (8.4-10.2); Carbon Dioxide 21 mmol/L (22-30); Chloride 107 mmol/L (98-107); Glucose 126 mg/dL (74-99); Non-African American GFR(CKD) >90 (>60 ml/min/1.73 sqM); Potassium 3.4 mmol/L (3.5-5.1); Sodium 134 mmol/L (137-145); Total Bilirubin 0.3 mg/dL (0.2-1.3); Total Protein 4.7 g/dL (6.3-8.2)
--- NOTE | 2022-07-29 12:39 | P.PN ---
Subjective Progress Note Date: 07/29/22 Principal diagnosis: hx breast cancer and head/neck sqaumous cell carcinoma At todays visit patient is resting comfortably in bed. She is reporting continued burning in throat with eating, but improvement overall. She reports kools solution is helping with odynophagia and swallowing. Denies PATTY/SOB. No other reported complaints at this time. Swallow study scheduled for today Objective - Vital Signs Vital signs: Vital Signs Temp 98.0 F 07/29/22 08:00 Pulse 62 07/29/22 08:00 Resp 18 07/29/22 08:00 BP 113/66 07/29/22 08:00 Pulse Ox 97 07/29/22 08:00 FiO2 Intake & Output 07/28/22 07/29/22 07/29/22 18:59 06:59 18:59 Intake Total 560 1580 118 Balance 560 1580 118 Weight 53.07 kg Intake: IV 1100 0.9% NaCl with KCl 20 Meq 450 /l 1,000 ml @ 75 mls/hr IV .[id number] NIKHIL Rx#: [id number] Magnesium Sulfate-D5w Pmx 200 1 gm In Dextrose/Water 1 100ml.bag @ 100 mls/hr IVPB Q1H NIKHIL Rx#: [id number] Potassium Chloride 10 meq 200 In Water For Injection 1 100ml.bag @ 100 mls/hr IVPB Q1H NIKHIL Rx#: [id number] Vancomycin 750 mg In 250 Sodium Chloride 0.9% 250 ml @ 125 mls/hr IVPB Q8HR NIKHIL Rx#:[id number] Oral 560 480 118 Other: Voiding Method Toilet Toilet Toilet # Voids 1 1 # Bowel Movements 1 - Constitutional General appearance: Present: average body habitus, no acute distress - EENT Eyes: Present: anicteric sclerae, EOMI ENT: Present: hearing grossly normal - Respiratory Details: breathing is even and unlabored - Cardiovascular Details: skin warm and dry - Integumentary Integumentary: Absent: cyanotic, rash - Neurologic Neurologic Comment(s): grossly intact - Musculoskeletal Musculoskeletal: Present: strength equal bilaterally - Psychiatric Psychiatric: Present: A&O x's 3, appropriate affect, intact judgment & insight - Labs CBC & Chem 7: 07/28/22 07:11 07/29/22 11:00 Labs: Abnormal Lab Results - Last 24 Hours (Table) 07/29/22 Range/Units 11:00 Sodium 134 L (137-145) mmol/L Potassium 3.4 L (3.5-5.1) mmol/L Carbon Dioxide 21 L (22-30) mmol/L Creatinine 0.50 L (0.52-1.04) mg/dL Glucose 126 H (74-99) mg/dL Calcium 7.9 L (8.4-10.2) mg/dL Total Protein 4.7 L (6.3-8.2) g/dL Albumin 2.4 L (3.5-5.0) g/dL Assessment and Plan (1) Squamous cell carcinoma of head and neck Current Visit: Yes Status: Acute Priority: High Code(s): C76.0 - MALIGNANT NEOPLASM OF HEAD, FACE AND NECK SNOMED Code(s): 645892471 (2) Breast cancer Current Visit: Yes Status: Acute Priority: Medium Code(s): C50.919 - MALIGNANT NEOPLASM OF UNSP SITE OF UNSPECIFIED FEMALE BREAST SNOMED Code(s): 257499571 (3) Hypokalemia Current Visit: Yes Status: Acute Priority: High Code(s): E87.6 - HYPOKALEMIA SNOMED Code(s): 50254676 (4) Acute epiglottitis without airway obstruction Current Visit: Yes Status: Acute Priority: High Code(s): J05.10 - ACUTE EPIGLOTTITIS WITHOUT OBSTRUCTION SNOMED Code(s): 73292639 Plan: Breast cancer/Squamous cell carcinoma head and neck: -S/p 6 cycles completion of radiation therapy with weekly cisplatin, completing treatment on 06/29/2022. -PET scan will be repeated in approximately 3 months from the completion of radiation therapy. -Once she has recovered from chemotherapy/radiation therapy, adjuvant endocrine therapy for her breast cancer will be recommended -Will plan for f/u in clinic upon discharge Suspected Epiglottitis: -X-ray soft tissue neck revealed correlation for acute epiglottitis. No PATTY/SOB, oxygen saturation 99% on room air. -Patient was started on fluconazole, vancomycin and rocephin. -Continue KOOLS prn for odynophagia -ENT consulted. Does not feel like this is epiglottitis, vanco and rocephin have been d/c. Pt continues on fluconazole. -Swallow study scheduled for today. Pt is tolerating oral intake, but reports burning sensation with eating Hypokalemia: -Potassium stable, 3.4 today. Potassium supplementation ordered -Defer management to IM team
[2022-07-29] MEDS: POTASSIUM CHLORIDE 10 MEQ in WATER FOR INJECTION 1 100ML.BAG IVPB SCH ×3 (13:42→16:26)
--- NOTE | 2022-07-29 14:49 | FL ---
EXAMINATION TYPE: FL barium swallow w video DATE OF EXAM: 07/29/2022 CLINICAL HISTORY: 57 year-old female rule out oropharyngeal dysphasia, recent completion of radiation therapy for throat cancer, pain with swallowing, Dysphagia. TECHNIQUE: Deglutition study is performed utilizing thin liquid barium, barium thick applesauce, and barium coated cracker. Total fluoroscopy time: 153 seconds. Total images: None. Real-time fluoroscopy support was provided to speech pathology. DOSE AREA PRODUCT (DAP) UGY*M,MGY*CM: 95.09 COMPARISON: None. FINDINGS: There is diffuse edematous appearance to the hypopharyngeal soft tissues including thickening of the epiglottis, pretracheal soft tissues, and prevertebral soft tissues. The oral and pharyngeal phases show satisfactory initiation and propagation with all modalities teste d. There is trace superficial penetration with thin liquids. Normal mastication is seen with solid m odalities tested. Otherwise, there is no evidence of penetration or aspiration with any modality test ed. No significant pharyngeal residue was appreciated. IMPRESSION: Trace superficial penetration with thin liquids. Otherwise, no penetration or aspiration seen. Diffus e edematous thickening likely relating to patient's radiation therapy. Please refer to speech therapist notes for further details if necessary.
[2022-07-29] MEDS ORDERED: MAGNESIUM OXIDE 400 MG TAB PO SCH (17:00)
--- NOTE | 2022-07-29 17:16 | P.DS ---
Providers Date of admission: 07/27/22 13:47 Expected date of discharge: 07/29/22 Attending physician: Dex Chowdhury MD Consults: 07/27/22 05:07 Consult Physician Urgent Consulting Provider: Kendall Duenas Consult Reason/Comments: breast cancer Do you want consulting provider notified?: Yes 07/27/22 13:23 Consult Physician Routine Consulting Provider: Rory Piper Consult Reason/Comments: epiglotitis Do you want consulting provider notified?: Yes Primary care physician: Dorothy Sened MD Hospital Course: Discharge Diagnosis: Odynophagia, secondary to esophageal candidiasis. Patient discharged home on Diflucan 200 mg daily for an additional 11 days to total 14 days of treatment. Patient may need up to 21 days of treatment if there are needs for extended treatment additional orders can be placed by oncology team upon patient's follow-up with oncology office next week. X-ray was concerning for acute epiglottitis, patient initially started on vancomycin and Rocephin and was later evaluated by ENT ruling out acute esophagitis and Rocephin and vancomycin later discontinued. Metastatic breast cancer status post chemotherapy and radiation treatments Severe hypokalemia, suspected secondary to malnourishment/dehydration and decreased oral intake resulting from odynophagia. Hypomagnesemia, replaced. Hospital Course: Patient is a very pleasant 57-year-old female with a past medical history of metastatic breast cancer to the head and neck status post recent completion of chemotherapy and radiation treatment under care of oncologist, Dr. Sneed. She presented to the emergency department secondary to painful swallowing resulting in inability to eat solid foods and liquids. Patient reports this has progressively worsened over the past 2 weeks. She underwent evaluation in the emergency department. Labs completed and reviewed. CBC showing normocytic anemia with hemoglobin of 9.9. BMP revealing hypokalemia with potassium of 2.8 and mild prerenal azotemia with BUN of 20. X-ray soft tissues of neck was completed and radiology report reviewed reporting correlating for acute epiglottitis with rounding of the epiglottis. Patient was started on Diflucan, Rocephin, and vancomycin and admitted under our services of consultation oncology and ENT. Influenza A, influenza B, strep PCR were obtained and all negative. Hemophilia influenzae IgG was obtained and sent to lab for analysis. Patient was evaluated by ENT and acute esophagitis was ruled out. Vancomycin and Rocephin discontinued at this time. Patient was seen and evaluated by speech and language pathologist patient underwent video fluoroscopic swallow evaluation. Swallow eval showing trace superficial penetration with thin liquids otherwise no penetration or aspiration seen. Patient very adamant on being discharged. She has had hypokalemia and hypomagnesemia throughout hospitalization and orders have been placed for replacement. Patient currently receiving last dose of potassium replacement. Patient being discharged home on Diflucan 200 mg daily for an additional 11 days to total a treatment course of 14 days for esophageal candidiasis. Patient may need up to 21 days of treatment, however if patient needs prolonged course additional orders may be placed by oncology team upon patient's follow-up with their office next week. Patient also being discharged home with Mag-Ox 400 mg daily and potassium chloride 20 mEq daily with prescription to have repeat BMP and magnesium drawn in 3 days with results to be sent to Dr. Sneed for follow-up and management. Patient medically stable for discharge at this time and to follow up outpatient with PCP and hematology/oncology as scheduled. Physical exam: Vital signs reviewed and stable. General: Nontoxic, no distress and appears stated age. Derm: Skin warm and dry, normal coloration for ethnicity. Head: Atraumatic, normocephalic and symmetric. Eyes: EOMs intact, no lid lag, and anicteric sclera Mouth: no lip lesions, mucus membranes moist. No erythema or exudate noted. Patient does have white plaque to the back of the tongue Cardiovascular: regular rate and rhythm with normal S1S2, no murmur, positive posterior tibial pulses bilaterally, and cap refill < 2 seconds. Lungs: Respirations even, regular, and unlabored on room air. Lungs CTA bilaterally, no rhonchi, no rales, no wheezing, and no accessory muscle usage. Abdominal: soft, nontender to palpation, no guarding, no appreciable organomegaly Ext: ROM intact. No gross muscle atrophy, no edema, no contractures Neuro: Speech clear, face symmetrical and CN II-XII grossly intact with no noted focal neuro deficits Psych: Alert and oriented to person, place, time, and situation. Appropriate and pleasant affect. A total of 31 minutes of time were spent preparing this complex discharge [facility]. Pt was discharged on 07/29/22 at 5:07 PM Patient was seen independently by Nurse Practitioner. This document was prepared using [employer] dictation software. Please allow for errors in billing checker while rare they do occur. Minesh Plasencia NP rendered care for this patient independently, reviewed the findings and plan as documented in the note above. I did not physically speak with or examine the patient on this date. Patient Condition at Discharge: Stable Plan - Discharge Summary Discharge Rx Participant: No New Discharge Prescriptions: New Potassium Chloride [Klor-Con 20 Packets] 20 meq PO DAILY 30 Days #30 packet Fluconazole Oral Susp [Diflucan Oral Susp] 200 mg PO DAILY 11 Days #55 ml Magnesium Oxide [Mag-Ox] 400 mg PO DAILY 30 Days #30 tab Continue Ibuprofen Oral Susp [Motrin Oral Susp] 800 mg PO Q6H PRN PRN Reason: Pain HYDROcodone/APAP [Alliance Elixir 7.5-325Mg/15Ml] 15 ml PO Q8HR PRN PRN Reason: Pain Discharge Medication List HYDROcodone/APAP [Alliance Elixir 7.5-325Mg/15Ml] 15 ml PO Q8HR PRN 07/27/22 [History] Ibuprofen Oral Susp [Motrin Oral Susp] 800 mg PO Q6H PRN 07/27/22 [History] Fluconazole Oral Susp [Diflucan Oral Susp] 200 mg PO DAILY 11 Days #55 ml 07/29/22 [Rx] Magnesium Oxide [Mag-Ox] 400 mg PO DAILY 30 Days #30 tab 07/29/22 [Rx] Potassium Chloride [Klor-Con 20 Packets] 20 meq PO DAILY 30 Days #30 packet 07/29/22 [Rx] Follow up Appointment(s)/Referral(s): Dorothy Sneed MD [Primary Care Provider] - 1 Week (Please call office to set up appointment ) Julio Bauer MD [STAFF PHYSICIAN] - 1 Week (Please call office to make follow up appointment ) Ambulatory/Diagnostic Orders: Basic Metabolic Panel [LAB.AMB] Time Frame: 3 Days, Location: None Selected Magnesium [LAB.AMB] Location: None Selected Patient Instructions/Handouts: Hypokalemia (DC), Hypokalemia (GEN) Discharge Disposition: HOME SELF-CARE
--- NOTE | 2022-07-30 08:21 | P.CONS ---
History of Present Illness - Reason for Consult Consult date: 07/29/22 Weight loss, failure to thrive Requesting physician: Kendall Duenas - Chief Complaint "I am feeling better" - History of Present Illness Ms. 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 Following partial mastectomy, she underwent adjuvant conventionally fractionated whole breast and regional jillian irradiation with a sequential surgical cavity boost to 60 Gy, completing treatment on 05/06/2022. 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 She underwent a course of concurrent chemoradiation with cisplatin to 70 Gy, completing treatment on 07/09/2022. At the time of treatment completion, she had developed odynophagia and had been prescribed liquid Holabird and Magic Mouthwash. Since then, her odynophagia has progressed and she has had minimal oral intake. Her intake weight was 116 pounds compared to 151 pounds at the time of treatment initiation. Upon presentation to the , she was found to be hypokalemic. There was some concern for epiglottitis but the patient was saturating well and her clinical presentation was more consistent with treatment-related inflammation. Today, she notes she has significantly improved with supportive care including Kools solution. She had a swallow study today which demonstrated trace penetration of thin liquids but otherwise no aspiration. Review of Systems All systems: negative (odynophagia and weight loss) Past Medical History Past Medical History: Cancer Additional Past Medical History / Comment(s): LEFT BREAST CANCER DIAGNOSED 01/2022. Currently having radiation Tue-Tue - not going Tuesday this week, states Radiation aware she's having procedure with Dr Drew. Vertigo. History of Any Multi-Drug Resistant Organisms: None Reported Past Surgical History: Breast Surgery Additional Past Surgical History / Comment(s): Left breast lumpectomy. Past Anesthesia/Blood Transfusion Reactions: Motion Sickness Additional Past Anesthesia/Blood Transfusion Reaction / Comm: Slow to wake up. Mom slow to wake up. Vertigo. Past Psychological History: No Psychological Hx Reported Smoking Status: Former smoker Past Alcohol Use History: Occasional Past Drug Use History: None Reported - Past Family History Mother History Unknown: Yes Family Medical History: Cancer Father History Unknown: Yes Family Medical History: Cancer Medications and Allergies Home Medications Medication Instructions Recorded Confirmed Type HYDROcodone/APAP [Holabird Elixir 15 ml PO Q8HR PRN 07/27/22 07/27/22 History 7.5-325Mg/15Ml] Ibuprofen Oral Susp [Motrin Oral 800 mg PO Q6H PRN 07/27/22 07/27/22 History Susp] Fluconazole Oral Susp [Diflucan 200 mg PO DAILY 11 Days #55 ml 07/29/22 Rx Oral Susp] Magnesium Oxide [Mag-Ox] 400 mg PO DAILY 30 Days #30 tab 07/29/22 Rx Potassium Chloride [Klor-Con 20 20 meq PO DAILY 30 Days #30 packet 07/29/22 Rx Packets] Allergies Allergy/AdvReac Type Severity Reaction Status Date / Time bacitracin Allergy Rash/Hives Verified 07/27/22 07:42 [From Neosporin ([id number])] latex Allergy Rash/Hives Verified 07/27/22 07:42 neomycin Allergy Rash/Hives Verified 07/27/22 07:42 [From Neosporin ([id number])] polymyxin B Allergy Rash/Hives Verified 07/27/22 07:42 [From Neosporin ([id number])] Sulfa (Sulfonamide Allergy Rash/Hives Verified 07/27/22 07:42 Antibiotics) codeine AdvReac Hallucinati Verified 07/27/22 07:42 ons WASPS Allergy Swelling Uncoded 07/27/22 07:42 Physical Exam Vitals: Vital Signs Pulse Resp 07/29/22 14:00 62 18 - Constitutional General appearance: no acute distress - EENT no mucositis Eyes: dentition normal - Neck trace erythema of irradiated field - Respiratory Respiratory: negative: prolonged expiration, prolonged inspiration Results CBC & Chem 7: 07/28/22 07:11 07/29/22 11:00 Labs: Abnormal Lab Results - Last 24 Hours (Table) 07/29/22 Range/Units 11:00 Sodium 134 L (137-145) mmol/L Potassium 3.4 L (3.5-5.1) mmol/L Carbon Dioxide 21 L (22-30) mmol/L Creatinine 0.50 L (0.52-1.04) mg/dL Glucose 126 H (74-99) mg/dL Calcium 7.9 L (8.4-10.2) mg/dL Total Protein 4.7 L (6.3-8.2) g/dL Albumin 2.4 L (3.5-5.0) g/dL Assessment and Plan Assessment: Ms. 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 Following partial mastectomy, she underwent adjuvant conventionally fractionated whole breast and regional jillian irradiation with a sequential surgical cavity boost to 60 Gy, completing treatment on 05/06/2022. 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 She underwent a course of concurrent chemoradiation with cisplatin to 70 Gy, completing treatment on 07/09/2022. Plan: The patient presents with failure to thrive, weight loss, and hypokalemia as sequelae from her chemoradiation. She has improved significantly with supportive care. She is in the window where the most significant toxicity from treatment is expected and I am confident her symptoms will improve considerably over the next few weeks with ongoing supportive care. She will acquire post-treatment PET/CT in 2 months and will follow-up with me thereafter. Yuriy Grullon MD Radiation Oncology Time with Patient: Less than 30
== END 2022-07-29 19:19 | disposition home or self-care (01) | DRG 368 ==
LOC: EC 17:55 → 6NMEDSUR 23:11 → 3SCARD 07-27 01:51 → OBSVTOIN 07-27 13:47 → 3SCARD 07-27 15:12
PROVIDERS: ADMIT Internal Medicine; ATTEND Internal Medicine
PROC: 05HY33Z Insertion of Infusion Device into Upper Vein, Percutaneous Approach (ICD-10-PCS; principal; 2022-07-28 09:00)
DX: B37.81 Candidal esophagitis (principal); E43 Unspecified severe protein-calorie malnutrition; C78.89 Secondary malignant neoplasm of other digestive organs; J05.10 Acute epiglottitis without obstruction; C32.9 Malignant neoplasm of larynx, unspecified; C50.412 Malignant neoplasm of upper-outer quadrant of left female breast; E83.42 Hypomagnesemia; D63.0 Anemia in neoplastic disease; E87.6 Hypokalemia; E86.0 Dehydration; Z28.310 Unvaccinated for COVID-19; Z87.891 Personal history of nicotine dependence; Z85.3 Personal history of malignant neoplasm of breast; Z92.21 Personal history of antineoplastic chemotherapy; Z91.030 Bee allergy status; Z88.8 Allergy status to other drugs, medicaments and biological substances; Z91.040 Latex allergy status; Z88.5 Allergy status to narcotic agent; Z88.1 Allergy status to other antibiotic agents; Z79.1 Long term (current) use of non-steroidal anti-inflammatories (NSAID); Z68.20 Body mass index [BMI] 20.0-20.9, adult; Z92.3 Personal history of irradiation; Z17.0 Estrogen receptor positive status [ER+]; Z90.12 Acquired absence of left breast and nipple
CPT/HCPCS: 36410; 36415; 70360; 74230; 76937; 80048; 80053; 80202; 83735; 84132; 85025; 85027; 86684; 87502; 87651; 96365; 96375; 99285

== ENCOUNTER → 2022-10-15 | Outpatient (CLI) | payer BC ==
--- NOTE | 2022-10-15 10:31 | XR ---
EXAMINATION TYPE: XR chest 2V DATE OF EXAM: 10/15/2022 COMPARISON: NONE HISTORY: Shortness of breath TECHNIQUE: Frontal and lateral views of the chest are obtained. FINDINGS: Scattered senescent parenchymal changes noted. Hyperinflation compatible with COPD. Masslike infiltrate within the right middle lobe. Scattered nodules some of which appear to be calcif ied. The lungs are otherwise clear. Lumpectomy changes left breast. Heart size is stable. Mediastinal structures are stable and grossly unremarkable. No evidence for hilar prominence. Degenerative changes dorsal spine. IMPRESSION: 1. Masslike infiltrate within the right middle lobe. Neoplasm not excluded. CT chest recommended.
== END | disposition home or self-care (01) ==
LOC: RADXRMAIN 09:47
PROVIDERS: ATTEND Internal Medicine
DX: C76.0 Malignant neoplasm of head, face and neck (principal); C50.412 Malignant neoplasm of upper-outer quadrant of left female breast; Z71.3 Dietary counseling and surveillance; R91.8 Other nonspecific abnormal finding of lung field; R06.02 Shortness of breath
CPT/HCPCS: 71046

== ENCOUNTER → 2022-11-02 | Outpatient (CLI) | payer BC ==
--- NOTE | 2022-11-03 10:09 | MM ---
Reason for Exam: Hx of breast cancer, conservation therapy. Last screening mammogram was performed 11 month(s) ago. Patient History: Breast Cancer, Left, age 56. 02/02/2022, Lumpectomy on the Left side. 02/02/2022, Malignant MG pre op needle loc LT on the left side. Prior Study Comparison: 10/01/2021 Bilateral Screening Mammogram, [facility]. 10/07/2021 Bilateral Screening Mammogram, [facility]. 12/02/2021 Left Diagnostic Mammogram, [facility]. Tissue Density: The breast tissue is extremely dense which could obscure a lesion on mammography. Findings: Analyzed By CAD. Lumpectomy and radiation therapy changes in the left breast. Skin thickening. No new masses or suspicious calcifications. Overall Assessment: Benign, BI-RAD 2 Management: Diagnostic Mammogram of both breasts in 1 year. A clinical breast exam by your physician is recommended on an annual basis and results should be correlated with mammographic findings. This exam should not preclude additional follow-up of suspicious palpable abnormalities. Results were given to the patient verbally at the time of exam. Electronically signed and approved by: Tian Sharp M.D. Radiologis
== END | disposition home or self-care (01) ==
LOC: RADMAMWWP 07:22
PROVIDERS: ATTEND Surgery
DX: C50.412 Malignant neoplasm of upper-outer quadrant of left female breast (principal); C76.0 Malignant neoplasm of head, face and neck; Z71.3 Dietary counseling and surveillance
CPT/HCPCS: 77062; 77066

== ENCOUNTER → 2022-11-02 | Outpatient (CLI) | payer BC ==
--- NOTE | 2022-11-02 08:46 | BD ---
EXAMINATION TYPE: Axial Bone Density DATE OF EXAM: 11/02/2022 CLINICAL HISTORY: 57 years old Female. ICD-10 CODE: C50.412MALIG NEOPLASM OF UPPER-OUTER QUADRANT OF L Height: 63 Weight: 108 FRAX RISK QUESTIONS: Secondary Osteoporosis: yes 3. Menopause before 45: yes Current Tobacco Use: quit January 2022 RISK FACTORS HISTORY OF: Postmenopausal woman: yes, 41 yrs Hyperparathyroidism: no Adrenal Insufficiency: no MEDICATIONS: Additional Medications: antidepressant, hx of radiation and chemo, vit d in the past, Additional History: hx of lt breast cancer and throat cancer, smoking past, EXAM MEASUREMENTS: Bone mineral densitometry was performed using the [employer] Software System. Bone mineral density as measured about the Lumbar spine is: ----- L1-L4(G/cm2): 1.109 T Score Values are as follows: ----- L1: -1.4 ----- L2: -1.5 ----- L3: -0.8 ----- L4: 0.9 ----- L1-L4: -0.6 Z Score Values are as follows: ----- L1: 0.2 ----- L2: 0.1 ----- L3: 0.8 ----- L4: 2.6 ----- L1-L4: 1.0 Bone mineral density is a baseline study today. Bone mineral density about the R hip (g/cm2): 0.868 Bone mineral density about the L hip (g/cm2): 0.866 T Score values are as follows: -----R Neck: -1.5 -----L Neck: -1.7 -----R Total: -1.1 -----L Total: -1.1 Z Score values are as follows: -----R Neck: 0.0 -----L Neck: -0.2 -----R Total: 0.1 -----L Total: 0.1 Bone mineral density is a baseline dexa. FRAX%s: The graph provided illustrates a 7.1% chance for a major osteoporotic fx and a 0.8% chance fo r the hips probability for fx in 10 years time. IMPRESSION: Osteopenia (T Score between -2.5 and -1). There is slightly increased risk of fracture and the patient may be considered for treatment. Re-Screen 2-5 years. NOTE: T-SCORE=SD OF THE YOUNG ADULT MEAN.
== END | disposition home or self-care (01) ==
LOC: RADBDWWP 07:18
PROVIDERS: ATTEND Internal Medicine
DX: C50.412 Malignant neoplasm of upper-outer quadrant of left female breast (principal); C76.0 Malignant neoplasm of head, face and neck; M85.89 Other specified disorders of bone density and structure, multiple sites; Z78.0 Asymptomatic menopausal state; Z71.3 Dietary counseling and surveillance
CPT/HCPCS: 77080

== ENCOUNTER → 2022-12-23 | Outpatient (CLI) | payer BC ==
--- NOTE | 2022-12-27 21:53 | PE ---
EXAMINATION TYPE: PET CT fusion skull to thigh DATE OF EXAM: 12/23/2022 COMPARISON: CT soft tissue neck 05/05/2022 Prior PET/CT: 09/24/2022 HISTORY: Breast cancer TECHNIQUE: Following the intravenous administration of 8.55 mCi of F-18 FDG, whole body images are p erformed from the skull base to the midthigh. Images are reviewed on the computer in the coronal, ax ial, and sagittal planes. Reconstructed rotating images are created on independent workstation and r eviewed on the computer. A localization and attenuation correction CT is performed in conjunction w ith the PET scan. DLP: 180.34 mGycm SCAN: Subsequent Blood glucose: 107 mg/dL Average Mediastinum SUV: 1.41 Average Liver SUV: 2.56 FINDINGS: NECK: No abnormal uptake THORAX: No abnormal uptake. Uptake within the left breast appears to be improving. ABDOMEN: No abnormal uptake PELVIS: No abnormal uptake OSSEOUS STRUCTURES: No abnormal uptake LOCALIZATION CT: There is a calcified granuloma within the right anterolateral lung field. Additional punctate calcified granulomas are present. COMPARISON: Previous density at the infrahilar region on the right is not identified on the current e xamination. No suspicious enhancement is evident. No underlying mass is evident IMPRESSION: 1. No suspicious uptake to suggest recurrent or metastatic breast cancer.
== END | disposition home or self-care (01) ==
LOC: RADPETMAIN 09:56
PROVIDERS: ATTEND Radiology Radiation Oncology
DX: C50.412 Malignant neoplasm of upper-outer quadrant of left female breast (principal); C50.512 Malignant neoplasm of lower-outer quadrant of left female breast; C32.3 Malignant neoplasm of laryngeal cartilage; C32.1 Malignant neoplasm of supraglottis
CPT/HCPCS: 78815; A9552

== ENCOUNTER → 2023-03-02 | Outpatient (CLI) | payer BC ==
[2023-03-02 08:28] LABS: African American GFR (CKD) 60 (>60 ml/min/1.73 sqM); Blood Urea Nitrogen 29 mg/dL (7-17); Non-African American GFR(CKD) 52 (>60 ml/min/1.73 sqM)
--- NOTE | 2023-03-04 13:52 | CT ---
EXAMINATION TYPE: CT soft tissue neck w con CT DLP: 395 mGycm, Automated exposure control for dose reduction was used. DATE OF EXAM: 03/02/2023 9:15 AM COMPARISON: CT soft tissue neck 05/05/2022. PET CT 12/23/2022.. 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 Axial sections with coronal and sagittal reformats were obtained. Contrast used:100 ml mL of Isovue 300 without and with IV Contrast, Oral contrast used: none. FINDINGS: Brain, orbits, sinuses: Small polypoid mucosal thickening in the right maxillary sinus. Otherwise th e visualized portions are grossly unremarkable. Spaces of the neck, airway: Enhancing soft tissue density in the left hypopharynx just cranial to the vocal cords identified before is no longer present. There is mild fatty infiltration of the regional soft tissues including the epiglottis, with mild thickening of the epiglottis not seen previously; t his may reflect posttreatment changes. A somewhat thickened appearance of the vocal cords appears sim ilar to previous. In the trachea inferior to the vocal cords there are a couple of small filling defe cts posteriorly and to the left which were not present on recent prior PET/CT or the prior CT, and ap pear less focal on multiplanar imaging, judged likely to represent mucous secretions rather than soft tissue nodularity. Nevertheless findings could be correlated with direct visual inspection. Musculoskeletal: No acute osseous pathology. Degenerative changes of the cervical spine with reversal of the normal lordosis and moderate spinal canal and neural foraminal stenoses at C5-C6 and C6-C7 du e to disc marginal osteophytes. Lymph nodes: Nonenlarged nodes are seen. No evidence of enlarged nodes. Vascular structures: Patent with atherosclerotic plaque of the internal carotid arteries at the bifur cation. Thoracic Inlet: Moderate bilateral emphysematous changes with biapical pleural thickening, left great er than right. Several small calcified nodules consistent with old granulomatous disease. A few tiny nodules are not clearly calcified but stable, and likely also granulomas. No acute infiltrate or pneu mothorax. Moderate atherosclerotic disease along the aortic arch and in the proximal branch vessels, with moderate stenosis of the proximal left subclavian artery. Soft tissues/Thyroid: Thyroid and remainder of the soft tissues are unremarkable. Other: None. IMPRESSION 1. Resolution of the enhancing soft tissue density in the left hypopharynx identified previously. 2. No evidence of adenopathy in the neck. 3. Other stable, chronic, and likely incidental findings, as described above.
== END | disposition home or self-care (01) ==
LOC: RADCTMAIN 07:46
PROVIDERS: ATTEND Otolaryngology
DX: C13.9 Malignant neoplasm of hypopharynx, unspecified (principal); J34.89 Other specified disorders of nose and nasal sinuses; M79.89 Other specified soft tissue disorders; M48.02 Spinal stenosis, cervical region; M47.812 Spondylosis without myelopathy or radiculopathy, cervical region; M99.71 Connective tissue and disc stenosis of intervertebral foramina of cervical region; J43.9 Emphysema, unspecified; J92.9 Pleural plaque without asbestos; R91.8 Other nonspecific abnormal finding of lung field
CPT/HCPCS: 82565; 84520; 70491; 36415; Q9967

== ENCOUNTER → 2023-07-01 | Outpatient (CLI) | payer BC ==
[2023-07-01 11:18] LABS: African American GFR (CKD) 85 (>60 ml/min/1.73 sqM); Blood Urea Nitrogen 16 mg/dL (7-17); Non-African American GFR(CKD) 73 (>60 ml/min/1.73 sqM)
--- NOTE | 2023-07-07 11:15 | CT ---
EXAMINATION TYPE: CT neck chest w con CT DLP: 588 mGycm, Automated exposure control for dose reduction was used. DATE OF EXAM: 07/01/2023 12:40 PM COMPARISON: 03/02/2023, 12/23/2022. CLINICAL INDICATION:Female, 58 years old with history of C76.0 HEAD AND NECK CANCER;, THROAT AND CHES T CA F/U TECHNIQUE: Standard enhanced CT of the neck and chest. Axial sections with coronal and sagittal refo rmats were obtained. Contrast used:100 mL of Isovue 300 with IV Contrast, (none if empty) Oral contrast used: (none if empty) FINDINGS: Brain: Visualized portions are grossly unremarkable. Orbits: Unremarkable Sinuses: Grossly unremarkable. Spaces of the neck: Clear and symmetric. Musculoskeletal: No acute osseous pathology. Lymph nodes: Multiple nonenlarged lymph nodes are seen along both anterior chains of the neck. Vascular structures: Visualized major arteries are patent without evidence of aneurysm. Thoracic Inlet/airway: Airway is patent. The lung apices are clear. Soft tissues/Thyroid: Thyroid and remainder of the soft tissues are unremarkable. Other: none. LUNGS/ PLEURA: Scattered calcified granulomas throughout the lung. No new or enlarging pulmonary nodu le. Paraseptal and centrilobular emphysema changes. No focal consolidation, pneumothorax or pleural e ffusion. Stable right intrafissural lymph node series 5 image 30 from 03/05/2022. Stable left lower l obe 4 mm pulmonary nodule series 5 image 35. Airspace opacities within the lingula are new. AIRWAY: Patent and unremarkable. HEART: Size within normal limits. MEDIASTINUM: No gross evidence of adenopathy. VASCULATURE: No aortic aneurysm. MUSCULOSKELETAL: No acute osseous abnormalities, multilevel degeneration changes of the spine with le ft-sided rib fractures of ribs 5 and 6 SOFT TISSUES/LYMPH NODES: Left breast surgical treatment changes. Surgical clips present. There is nieto bcutaneous changes edema within the left breast. Left breast skin thickening is asymmetrically increa sed compared to the right measuring up to 7 mm in thickness. LOWER NECK: No significant findings. UPPER ABDOMEN: No significant findings. IMPRESSION 1. Asymmetric left breast skin thickening with subcutaneous edema. Findings of edema may are increas ed from 03/05/2022 but similar to recent 12/23/2022 PET/CT. No evidence for lymphadenopathy within th e visualized head and neck. No new or enlarging pulmonary nodules. 2. Left ribs 5 and 6 fractures correlate with recent history of trauma to the chest. 3. Airspace opacities in the lingula may be secondary to #2 given their close approximation to these ribs.
== END | disposition home or self-care (01) ==
LOC: RADCTMAIN 10:34
PROVIDERS: ATTEND Internal Medicine
DX: R91.8 Other nonspecific abnormal finding of lung field (principal); M95.4 Acquired deformity of chest and rib; C76.0 Malignant neoplasm of head, face and neck; C32.9 Malignant neoplasm of larynx, unspecified; C76.1 Malignant neoplasm of thorax; C50.412 Malignant neoplasm of upper-outer quadrant of left female breast; R23.4 Changes in skin texture; R60.0 Localized edema
CPT/HCPCS: 82565; 84520; 70491; 71260; 36415; Q9967

== ENCOUNTER → 2023-07-11 | Outpatient (CLI) | payer OTHER ==
--- NOTE | 2023-07-11 13:28 | XR ---
EXAMINATION TYPE: XR forearm bilateral, XR hand complete bilateral DATE OF EXAM: 07/11/2023 12:53 PM CLINICAL INDICATION:Female, 58 years old with history of S56.811A,S56.812A,R20.9; COMPARISON: None TECHNIQUE: XR forearm bilateral, XR hand complete bilateral; forearm was examined in AP and lateral p rojections. Bilateral hands were evaluated in frontal lateral and oblique views. FINDINGS: No acute osseous pathology, soft tissue swelling or joint dislocations are seen. There is mild soft tissue swelling on the over the olecranon process of the right elbow. Remote injury suggest ed to the third digit distal phalanx of the left hand. Mild multifocal degeneration changes with join t space narrowing and osteophyte formation. IMPRESSION: 1. No evidence of acute fracture. 2. Asymmetric soft tissue swelling over the olecranon process of the right elbow , correlate for bur sitis and/or cellulitis 3. Mild multifocal osteoarthrosis changes of the joints of the hands
== END | disposition home or self-care (01) ==
LOC: RADXRMAIN 12:11
PROVIDERS: ATTEND Emergency Medicine
DX: M19.041 Primary osteoarthritis, right hand (principal); S56.811A Strain of other muscles, fascia and tendons at forearm level, right arm, initial encounter; S56.812A Strain of other muscles, fascia and tendons at forearm level, left arm, initial encounter; R20.9 Unspecified disturbances of skin sensation

== ENCOUNTER → 2023-09-19 | Outpatient (CLI) | payer BC ==
--- NOTE | 2023-09-19 13:33 | CT ---
EXAMINATION TYPE: CT neck chest w con CT DLP: 555.6 mGycm, Automated exposure control for dose reduction was used. DATE OF EXAM: 09/19/2023 10:35 AM COMPARISON: CT neck chest 07/01/2023, PET CT 12/23/2022. 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 Axial sections with coronal and sagittal refo rmats were obtained. Reported difficult IV access. IV blew after 60 cc of Isovue-300 administered. Contrast used:60 cc mL of Isovue 300 with IV Contrast, (none if empty) Oral contrast used: (none if empty) FINDINGS: Brain: Visualized portions are grossly unremarkable. Orbits: Unremarkable Sinuses: Mucous retention cyst within the anterior right maxillary sinus measuring 1.0 cm. The remain ing paranasal sinuses and mastoids are clear. Spaces of the neck: Clear and symmetric. Musculoskeletal: No acute osseous pathology. Retrolisthesis of C5 on C6. Multilevel degenerative dise ase from C5 through C7. Lymph nodes: Multiple nonenlarged lymph nodes are seen along both anterior chains of the neck. Vascular structures: Visualized major arteries are patent without evidence of aneurysm. Bilateral car otid bulb calcifications. Thoracic Inlet/airway: Airway is patent. The lung apices are clear. Soft tissues/Thyroid: Thyroid and remainder of the soft tissues are unremarkable. Other: none. LUNGS/ PLEURA: Scattered calcified granulomas throughout the lung. No new or enlarging pulmonary nodu le. Paraseptal and centrilobular emphysema changes. No focal consolidation, pneumothorax or pleural e ffusion. Stable 4 mm nodule along the right major fissure (series 7, 29). Stable left lower lobe 4 mm pulmonary nodule (series 7, image 32). Stable peripheral reticular consolidative opacities within th e lingula which might be related to posttreatment change. AIRWAY: Patent and unremarkable. HEART: Size within normal limits. No pericardial effusion. Mild coronary artery calcifications. MEDIASTINUM: No evidence of adenopathy. VASCULATURE: No aortic aneurysm. Mild atherosclerotic calcification of the aorta and its branches. MUSCULOSKELETAL: No acute osseous abnormalities. Remote left-sided rib fractures of ribs 5 and 6. No aggressive osseous lesion. SOFT TISSUES/LYMPH NODES: Left breast surgical treatment changes. Surgical clips present. There is nieto bcutaneous changes edema within the left breast. Left breast skin thickening is asymmetrically increa sed compared to the right again. LOWER NECK: No significant findings. UPPER ABDOMEN: Nonobstructive left renal 5 mm calculus. IMPRESSION 1. Similar asymmetric left breast skin thickening with subcutaneous edema. No evidence for lymphaden opathy. No new or enlarging pulmonary nodules. 2. Stable airspace opacities in the lingula which may relate to posttreatment change. 3. No CT evidence for recurrence within the neck.
== END | disposition home or self-care (01) ==
LOC: RADCTMAIN 09:16
PROVIDERS: ATTEND Radiology Radiation Oncology
DX: C32.3 Malignant neoplasm of laryngeal cartilage (principal); C32.1 Malignant neoplasm of supraglottis; C50.412 Malignant neoplasm of upper-outer quadrant of left female breast; R60.9 Edema, unspecified; R23.4 Changes in skin texture
CPT/HCPCS: 70491; 71260; Q9967

== ENCOUNTER → 2023-10-11 | Outpatient (CLI) | payer BC | END | disposition home or self-care (01) | LOC: LABPRL 11:21 | PROVIDERS: ATTEND Orthopaedic Surgery Hand Surgery | DX: Z01.812 Encounter for preprocedural laboratory examination | CPT/HCPCS: 80048; 85025 ==

== ENCOUNTER 2023-10-27 13:30 | Day surgery (SDC) | payer BC ==
[2023-10-27] MEDS ORDERED: LIDOCAINE 1% INJ 10MG/ML (20 ML MDV) ONE (14:33)
[2023-10-27] MEDS ORDERED: fentaNYL (PF) 50 MCG/ML 2 ML AMP ONE (14:33)
[2023-10-27] MEDS ORDERED: LACTATED RINGERS 1,000 ML BAG ONE (14:33)
[2023-10-27] MEDS ORDERED: SODIUM CHLORIDE 0.9% 50 ML BAG ONE (14:33)
[2023-10-27] MEDS ORDERED: ceFAZolin 1,000 MG VIAL ONE (14:33)
[2023-10-27] MEDS ORDERED: MIDAZOLAM 2 MG/2 ML VIAL ONE (14:33)
[2023-10-27] MEDS ORDERED: PROPOFOL 10 MG/ML 20 ML VIAL IV ONE (14:33)
[2023-10-27] MEDS ORDERED: BUPIVACAINE (PF) 0.25% 10 ML VIAL ONE (14:33)
[2023-10-27] MEDS ORDERED: HYDROmorphone 0.5 MG/0.5 ML SYRINGE ONE (15:31)
--- NOTE | 2023-11-18 11:46 | HP ---
HISTORY AND PHYSICAL DATE OF SURGERY: 10/27/2023. HISTORY OF PRESENT ILLNESS: Jusat Abrams is a patient seen with symptomatic left carpal tunnel syndrome. We discussed treatment options. She elected to proceed with decompression of left median nerve. Consent was obtained. PAST MEDICAL HISTORY: Noncontributory. PAST SURGICAL HISTORY: Decompression of right median nerve. DAILY MEDICATIONS: None. ALLERGIES: None reported. PHYSICAL EVALUATION OF THE LEFT HAND: She has a positive carpal compression, carpal tunnel is causing numbness and tingling throughout the median nerve distribution. She has decreased sensation throughout the median nerve distribution. She has good perfusion distally. An EMG of left upper extremity revealed carpal tunnel syndrome. IMPRESSION: Left carpal tunnel syndrome. PLAN: Decompression of left median nerve. MMODL / IJN: [id number] /
--- NOTE | 2023-12-01 14:46 | OP ---
OPERATIVE REPORT DATE OF SERVICE : 10/27/2023 PREOPERATIVE DIAGNOSIS: Left carpal tunnel syndrome. POSTOPERATIVE DIAGNOSIS: Left carpal tunnel syndrome. PROCEDURE PERFORMED: Decompression left median nerve. ANESTHESIA: IV sedation with local. COMPLICATIONS: None. ESTIMATED BLOOD LOSS: 0. The patient tolerated the procedure well. INDICATIONS: uJsta Abrams is a patient seen with symptomatic left carpal tunnel syndrome. After having treatment options discussed, she elected to proceed with decompression left median nerve. Consent was obtained. DESCRIPTION OF PROCEDURE: The patient was taken to the operative suite. She received preoperative IV antibiotics. She underwent IV sedation by Department of Anesthesia. A well-padded tourniquet was placed in proximal left upper extremity. Left upper extremity prepped and draped in normal sterile orthopedic fashion. I infiltrated the proposed incision site with 6 mL of 0.25% plain Marcaine with sufficient local anesthesia was noted. We elevated the extremity with the tourniquet 250. An incision began at the distal volar wrist crease extending distally approximately 3 cm in line with the 4th metacarpal, sharply through skin. I dissected down through subcutaneous soft tissues off the palmar fascia to the transverse carpal ligament. I then made a small incision through the transcarpal ligament. I completed the release proximally and distally with blunt Metzenbaum. I noted complete release of the transverse carpal ligament and good decompression of the entire median nerve. I now irrigated the wound out, repaired the skin with nylon sutures. Applied sterile dressings. The tourniquet was released and neat capillary refill of all digits noted. The patient was then awakened, transferred to recovery in stable condition having tolerated procedure well. MMODL / IJN: [id number] /
== END 2023-10-27 16:00 ==
LOC: OR 13:30
PROVIDERS: ATTEND Orthopaedic Surgery
DX: G56.02 Carpal tunnel syndrome, left upper limb (principal); Z88.5 Allergy status to narcotic agent; Z88.2 Allergy status to sulfonamides; Z85.3 Personal history of malignant neoplasm of breast

== ENCOUNTER → 2023-11-23 | Outpatient (CLI) | payer BC ==
--- NOTE | 2023-11-23 10:59 | MM ---
Reason for Exam: Follow-up at short interval from prior study. Last mammogram was performed 1 year(s) and 1 month(s) ago. Patient History: Menarche at age 11. First Full-Term at age 22. Breast cancer, left, age 56. Previous chest radiation therapy at age 56. Previous chemotherapy at age 57. 02/02/2022, Lumpectomy on the Left side. 02/02/2022, Malignant MG pre op needle loc LT on the left side. Maternal aunt had breast cancer. Maternal aunt had breast cancer. Mother had breast cancer at or over age 50. Prior Study Comparison: 10/01/2021 Bilateral Screening Mammogram, [facility]. 10/01/2021 Bilateral Screening Mammogram, Unknown. 10/06/2021 Bilateral Screening Mammogram, Unknown. 10/07/2021 Bilateral Screening Mammogram, [facility]. 12/02/2021 Left Diagnostic Mammogram, [facility]. 12/02/2021 Left Diagnostic Mammogram, Unknown. 11/02/2022 Bilateral MG 3D diag mammo w/cad [facility], [facility]. Tissue Density: The breasts are extremely dense, which lowers the sensitivity of mammography. Findings: Analyzed By CAD. The pattern is symmetrical. Post lumpectomy changes are in the upper outer posterior left breast. Skin thickening is present on the left. A few scattered benign punctate calcifications are present bilaterally. No suspicious groups of microcalcifications, spiculated or lobular masses, architectural distortion or other secondary signs of malignancy are mammographically apparent. Overall Assessment: Benign, BI-RAD 2 Management: Diagnostic Mammogram of both breasts in 1 year. A negative mammogram report should not preclude additional follow up of suspicious palpable abnormalities. Patient should continue monthly self breast exam. A clinical breast exam by your physician is recommended on an annual basis and results should be correlated with mammographic findings. Note on Adrienne scores and lifetime risk: 1. A Adrienne score greater than 3% is considered moderate risk. If this is the case, consider specialist referral to assess eligibility for a risk reducing agent. 2. If overall lifetime risk for the development of breast cancer is 20% or higher, the patient may qualify for future screening with alternating mammogram and breast MRI. [facility], Workstation: [employer], 11/23/2023 10:56 AM. Electronically signed and approved by: Delmer Gonsalez D.O. Radiologis
== END | disposition home or self-care (01) ==
LOC: RADMAMWWP 10:24
PROVIDERS: ATTEND Internal Medicine
DX: C50.412 Malignant neoplasm of upper-outer quadrant of left female breast
CPT/HCPCS: 77062; 77066

== ENCOUNTER → 2024-01-05 | Outpatient (CLI) | payer BC ==
[2024-01-05 08:35] VITALS: BP 103/61; PULSE 99; RESP 17; TEMP 99.5
--- NOTE | 2024-01-05 09:02 | P.PN ---
Subjective Progress Note Date: 01/05/24 Principal diagnosis: Left breast invasive ductal carcinoma, stage IIIA pT2 pN2a cM0 G2 ER + WA + HER-2/leo -; diagnosed [id number] Malignant neoplasia laryngeal cartilage diagnosed 01-05-24 Principal diagnosis: Left breast invasive ductal carcinoma, stage IIIA pT2 pN2a cM0 G2 ER + WA + HER-2/leo -; diagnosed [id number] Malignant neoplasia laryngeal cartilage diagnosed Justa is a 58 year old white female status post left breast lumpectomy and SNB on 02-02-22. She was noted to have a lesion measuring 2.1 cm in largest dimension. DCIS was also present with micropapillary features of microcalcifications in the invasive tumor and the DCIS. Surgical margins were noted to be negative including margins for DCIS. The patient had sentinel node biopsy of the left axillary lymph node which revealed micrometastatic disease with 1 mm focus. Additionally 4 of 5 left axillary lymph nodes revealed macro metastatic disease with a largest measuring 1 cm. One of these nodes had extranodal extension. At this time she is not complaining of any new lumps masses or nodules of concern in either breast or axilla. She is not complaining of any new pain. The patient underwent a PET scan prior to the breast surgery which revealed an area of increased uptake in the left hypopharynx. Biopsy of this revealed a squamous cell carcinoma. This was treated with x-ray therapy and chemotherapy. She completed x-ray therapy to the left breast as well, did not have any chemotherapy for the left breast. A bilateral mammogram on 11-23-23 which was benign BIRADS 2. Personally reviewed and interpreted. Initial core biopsy of the left breast and 920 822 revealed grade 1 invasive ductal carcinoma ER/WA positive and HER-2 O oncotype recurrence score was 9 from initial biopsy Lumpectomy performed on 1120 922 revealed grade 1 invasive ductal carcinoma with DCIS and 4 of 5 lymph nodes positive for macro metastatic disease as well as a sentinel node with micrometastatic disease PET scan was performed on 305960 to rule out metastatic disease no evidence of metastatic disease was noted but incidental finding of increased activity in the left larynx was noted, triple endoscopy performed which revealed squamous cell carcinoma She was treated for this with radiation therapy and weekly cisplatin starting on 320 123 completed cycle 6 of weekly cisplatin on 420 523 with 70 mabel of radiation last received on 7375 She did develop abdominal site fascia resulting in hospitalization in July 2022 At this time the patient is doing well a PET/CAT scan on noted minimal FDG activity in the right infrahilar region which clinically did not feel to represent cancer and repeat PET/CT in 2 months was recommended PET scan 12-23-22 no uptake to suggest recurrent or metastatic breast cancer, previous density at the infrahilar region on the right was not identified. Was started on anastrozole 1 mg daily in November 2022, in addition she had supplemental calcium and vitamin D secondary to osteo porosis noted on a DEXA scan on 11-02-2022 She was also started on Verzenio on 01-29-2023 She had a staging CT of the chest and neck on 07-01-2023 which revealed no evidence of recurrent or metastatic malignancy Plan was to continue Verzenio 100 mg twice daily with anastrozole 1 mg daily and supplemental calcium and vitamin D She is not complaining of any new lumps masses or nodules of concern in either breast, she is tolerating the anastrozole and the Verzenio without difficulty. Note 08-12-23 Dr. Dorothy Sneed reviewed note 10-20-23 Dr. 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 and 07-09-2022 Family History: mother: breast cancer father: cancer: lung mets sister: brain cancer 3 maternal aunts with breast cancer Sugical History: left lumpectomy and SNB throat biopsy Medical History: none S[place] History alcohol: none stopped about 2 years ago nicotine: none stopped about 2 years ago used to moke 1/PPD for about 40 years drugs: none Objective - Vital Signs Vital signs: Vital Signs Temp 99.5 F 01/05/24 08:33 Pulse 99 01/05/24 08:33 Resp 17 01/05/24 08:33 BP 103/61 01/05/24 08:33 Pulse Ox 96 01/05/24 08:33 FiO2 Intake & Output 01/04/24 01/05/24 01/05/24 18:59 06:59 18:59 Weight 50.802 kg - Constitutional General appearance: Present: cooperative - EENT Eyes: Present: EOMI ENT: Present: hearing grossly normal - Neck Neck: Present: normal ROM - Respiratory Respiratory: bilateral: CTA - Cardiovascular Rhythm: regular Heart sounds: normal: S1, S2 - Integumentary Integumentary: Present: normal turgor - Musculoskeletal Musculoskeletal: Present: gait normal - Psychiatric Psychiatric: Present: A&O x's 3, appropriate affect, intact judgment & insight - Additional findings Additional findings: Breast Exam: BRA: 36C Inspection: Postradiation and surgical changes left breast, bilateral grade 3 ptosis; actually slightly larger than right breast Palpation: Right breast: Multiple positional exam fibrocystic changes no dominant masses or nodules of concern Right axilla: No adenopathy of concern Left breast: Postsurgical and radiation changes no dominant masses or nodules of concern Left axilla: No evidence of any recurrent disease Assessment and Plan Assessment: Impression: Stage III left breast invasive ductal carcinoma on pathologic staging, patient has received surgery and radiation therapy, she has received chemotherapy for squamous cell carcinoma of the throat breast Oncotype score on the breast was 9 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 Sneed Plan: No evidence of recurrent left breast cancer Hormone and immunotherapy as per medical oncology follow with medical oncology for left arytenoid cancer bilateral mammogram in December 2024 with appointment follow up in 6 months Patient to follow up sooner any questions or concerns CC: Ross You
== END ==
LOC: WWCWWP 08:25
PROVIDERS: ATTEND Surgery
DX: C50.912 Malignant neoplasm of unspecified site of left female breast (principal); C14.0 Malignant neoplasm of pharynx, unspecified; Z92.3 Personal history of irradiation; Z80.3 Family history of malignant neoplasm of breast; Z17.0 Estrogen receptor positive status [ER+]; Z88.1 Allergy status to other antibiotic agents; Z88.5 Allergy status to narcotic agent; Z88.2 Allergy status to sulfonamides; Z91.030 Bee allergy status; Z91.040 Latex allergy status

== ENCOUNTER → 2024-05-03 | Outpatient (CLI) | payer BC ==
[2024-05-03 10:16] LABS: African American GFR (CKD) >90 (>60 ml/min/1.73 sqM); Blood Urea Nitrogen 25 mg/dL (7-17); Non-African American GFR(CKD) 82 (>60 ml/min/1.73 sqM)
--- NOTE | 2024-05-03 16:19 | CT ---
EXAMINATION TYPE: CT neck chest w con DATE OF EXAM: 05/03/2024 11:08 AM COMPARISON: 09/19/2023 CLINICAL INDICATION: Female, 59 years old with history of C76.0 MALIGNANT NEOPLASM OF HEAD, FACE AND NECK, TECHNIQUE: Axial images at 3 mm thick sections. Reconstructed images in the coronal plane and sagitt al plane are reviewed. Contrast used: mL of , (none if empty) Oral contrast used: (none if empty) CT DLP: mGycm, Automated exposure control for dose reduction was used. FINDINGS: Limited CT sections are obtained the lung apices. Multiple scattered calcifications are present. The re is thickening through the anterior superior left apex present previously CT neck: The torus tubarius and fossa of Rosenmuller are normal. Contract Programmer spaces are normal. Para nasal sinuses and mastoid air cells are clear. Parotid glands appear normal and symmetrical. Submandibular glands, are normal. Parapharyngeal spac es are normal. No suspicious adenopathy is evident. The hypopharynx appears within normal limits. Vocal cord level appear symmetrical. Thyroid as visualized is normal. Osseous structures are normal. Degenerative changes are within the cervical spine. IMPRESSION: 1. No suspicious acute changes to suggest recurrent or metastatic neoplasm. EXAMINATION TYPE: CT neck chest w con DATE OF EXAM: 05/03/2024 11:08 AM COMPARISON: None. CLINICAL INDICATION: Female, 59 years old with history of C76.0 MALIGNANT NEOPLASM OF HEAD, FACE AND NECK, TECHNIQUE: Axial images were obtained at 5 mm thick sections. Reconstructed images are reviewed on [employer] computer in the coronal plane. Contrast used: mL of , (none if empty) Oral contrast used: (none if empty) CT DLP: mGycm, Automated exposure control for dose reduction was used. FINDINGS: Portion of the thyroid visualized is normal. There is a 0.5 cm nodule in the periphery of the posterior lateral left upper lung with an adjacent 0 .4 cm nodule. Series 10 image 35. These appear to be present previously. There may be a density withi n the periphery of the posterior lateral right midlung. Series 10 image 35. Multiple punctate periphe ral nodules are present. These appear to be present previously and stable. There is calcified granulo ma present within the peripheries of the upper lung pena. No enlarged mediastinal or hilar adenopathy is evident. The ascending aorta diameter at the level o f the main pulmonary artery is 3.0 cm. The main pulmonary artery diameter at the bifurcation is 2.1 cm. Some coronary artery calcification is present. Limited CT sections are obtained through the upper abdomen. Abdomen is essentially unremarkable. There is diffuse thickening through the left breast skin. There is increased density within the breas t parenchyma. Left breast is larger than the right. IMPRESSION: 1. Abnormality within the left breast compatible with the patient's neoplasm. 2. Multiple punctate nodules, stable from comparison. These are nonspecific and follow-up is recomme nded. [facility], , 05/03/2024 4:16 PM
== END | disposition home or self-care (01) ==
LOC: RADCTMAIN 09:25
PROVIDERS: ATTEND Internal Medicine
DX: C76.0 Malignant neoplasm of head, face and neck (principal); C50.412 Malignant neoplasm of upper-outer quadrant of left female breast; R91.8 Other nonspecific abnormal finding of lung field
CPT/HCPCS: 82565; 84520; 70491; 71260; 36415; Q9967